=== PATIENT | female | born 1935 | race Caucasian/White ===

== ENCOUNTER → 2018-08-03 | Outpatient (CLI) | payer MEDICARE, OTHER ==
--- NOTE | 2018-08-04 07:21 | ECHOF ---
Referral Reason:I25.10 Atherosclerotic heart disease MEASUREMENTS -------- HEIGHT: 160.0 cm WEIGHT: 54.4 kg BP: 194/84 RVIDd: 2.1 cm (< 3.3) IVSd: 1.5 cm (0.6 - 1.1) LVIDd: 2.9 cm (3.9 - 5.3) LVPWd: 1.5 cm (0.6 - 1.1) IVSs: 2.0 cm LVIDs: 2.4 cm LVPWs: 1.6 cm LA Diam: 3.1 cm (2.7 - 3.8) LAESV Index (A-L): 52.14 ml/m Ao Diam: 3.3 cm (2.0 - 3.7) AV Cusp: 1.2 cm (1.5 - 2.6) MV EXCURSION: 9.870 mm (> 18.000) MV EF SLOPE: 15 mm/s (70 - 150) EPSS: 0.4 cm MV E Lucius: 1.46 m/s MV DecT: 471 ms MV A Lucius: 1.58 m/s MV E/A Ratio: 0.92 AV maxP.00 mmHg AV meanP.43 mmHg RAP: 5.00 mmHg RVSP: 35.84 mmHg FINDINGS -------- Sinus rhythm. This was a technically good study. The left ventricular size is normal. There is moderate concentric left ventricular hypertrophy. O verall left ventricular systolic function is normal with, an EF between 55 - 60 %. The right ventricle is normal in size. LA is severely dilated >40 ml/m2 The right atrium is normal in size. Peak/mean gradient across the Aortic Valve is 16.00mmHg / 8.43mmHg. Normally functioning bioprosthe tic valve. Severe mitral annular calcification present. Moderate mitral regurgitation is present. Mild tricuspid regurgitation present. There is mild pulmonary hypertension. The right ventricular systolic pressure, as measured by Doppler, is 35.84mmHg. Trace/mild (physiologic) pulmonic regurgitation. The aortic root size is normal. Normal inferior vena cava with normal inspiratory collapse consistent with estimated right atrial pre ssure of 5 mmHg. The inferior vena cava is mildly dilated. There is no pericardial effusion. CONCLUSIONS -------- 1. Sinus rhythm. 2. This was a technically good study. 3. The left ventricular size is normal. 4. There is moderate concentric left ventricular hypertrophy. 5. Overall left ventricular systolic function is normal with, an EF between 55 - 60 %. 6. LA is severely dilated >40 ml/m2 7. Peak/mean gradient across the Aortic Valve is 16.00mmHg / 8.43mmHg. 8. Normally functioning bioprosthetic valve. 9. Severe mitral annular calcification present. 10. Moderate mitral regurgitation is present. 11. Mild tricuspid regurgitation present. 12. There is mild pulmonary hypertension. 13. Trace/mild (physiologic) pulmonic regurgitation. 14. The aortic root size is normal. 15. Normal inferior vena cava with normal inspiratory collapse consistent with estimated right atrial pressure of 5 mmHg. 16. The inferior vena cava is mildly dilated. 17. There is no pericardial effusion. PUBLIC HEALTH VETERINARIAN: Amee Rivera RDCS
== END | disposition home or self-care (01) ==
LOC: RADECHMAIN 14:27
PROVIDERS: ATTEND Family Medicine
DX: I08.8 Other rheumatic multiple valve diseases (principal); I27.20 Pulmonary hypertension, unspecified; I25.10 Atherosclerotic heart disease of native coronary artery without angina pectoris
CPT/HCPCS: 93306

== ENCOUNTER 2018-11-11 09:54 | Inpatient (IN) | payer MEDICARE, OTHER ==
[2018-11-11] MEDS ORDERED: PANTOPRAZOLE 40 MG/10 ML VIAL IVP STA (10:01)
[2018-11-11] MEDS ORDERED: SODIUM CHLORIDE 0.9% 1,000 ML IV STA (10:01)
[2018-11-11] MEDS ORDERED: NALOXONE 0.4 MG/ML 1 ML VIAL IV PRN (10:07)
--- NOTE | 2018-11-11 10:13 | ED ---
General Adult HPI - General Chief complaint: GI Bleed Stated complaint: GI BLEED Time Seen by Provider: 11/11/18 09:56 Source: patient, EMS, RN notes reviewed Mode of arrival: EMS Limitations: no limitations - History of Present Illness Initial comments: 83-year-old female presenting from outside hospital as transfer for GI bleed and anemia. Patient noted to have hemoglobin of 6.0 with baseline of 11.5. She does report several episodes of bright red rectal bleeding. Denies chest pain or dyspnea at rest. She does have some mild dyspnea with exertion. Also complains of some generalized weakness. Patient transfused 1 unit of packed red blood cells prior to transfer. EMS reports stable vitals during transport, patient is asymptomatic at the time my evaluation. Denies any episodes of bright red rectal bleeding today. - Related Data Allergies Allergy/AdvReac Type Severity Reaction Status Date / Time No Known Allergies Allergy Verified 11/11/18 10:05 Review of Systems ROS Statement: Those systems with pertinent positive or pertinent negative responses have been documented in the HPI. ROS Other: All systems not noted in ROS Statement are negative. Past Medical History Past Medical History: Coronary Artery Disease (CAD), Thyroid Disorder History of Any Multi-Drug Resistant Organisms: None Reported Past Surgical History: Cardiac Valve Replacement, Coronary Bypass/CABG Past Psychological History: No Psychological Hx Reported Smoking Status: Never smoker Past Alcohol Use History: None Reported Past Drug Use History: None Reported General Exam Limitations: no limitations General appearance: alert, in no apparent distress Head exam: Present: atraumatic, normocephalic Eye exam: Present: normal appearance, PERRL ENT exam: Present: normal exam Neck exam: Present: normal inspection. Absent: tenderness, meningismus Respiratory exam: Present: normal lung sounds bilaterally. Absent: respiratory distress, wheezes Cardiovascular Exam: Present: regular rate, normal rhythm GI/Abdominal exam: Present: soft. Absent: distended, tenderness, guarding Rectal exam: Present: heme (+) stool, black stool Extremities exam: Present: normal inspection, normal capillary refill. Absent: pedal edema Neurological exam: Present: alert, oriented X3 Psychiatric exam: Present: normal affect, normal mood Skin exam: Present: warm, dry, pallor Course Vital Signs 11/11/18 09:58 Temperature 98.4 F Pulse Rate 93 Respiratory 18 Rate Blood Pressure 123/53 O2 Sat by Pulse 100 Oximetry Medical Decision Making - Medical Decision Making 83-year-old female with rectal bleeding and anemia. On exam there is melanotic stool in the rectal vault, no bright red blood, no active hemorrhage. Laboratory studies revealed a hemoglobin 6.0 prior to transfusion. Patient was transfused 1 unit in route. After this transfusion is complete, repeat laboratory studies will be obtained including type and screen. Patient is started on Protonix. She will be admitted with gastroenterology on consult. Case discussed with Dr. Montes, we will admit. Repeat laboratory studies pending Disposition Clinical Impression: Melena, GI bleed Disposition: ADMITTED IP TO THIS [facility] Condition: Stable Is patient prescribed a controlled substance at d/c from ED?: No Referrals: Romeo Montes MD [Primary Care Provider] - 1-2 days Decision to Admit Reason: Admit from EC Decision Date: 11/11/18 Decision Time: 10:13
[2018-11-11 11:57] LABS: Basophils % (A) 0 %; Eosinophils % (A) 0 %; HCT 25.3 % (34.0-46.0); HGB 8.3 gm/dL (11.4-16.0); Lymphocytes # (A) 1.1 k/uL (1.0-4.8); Lymphocytes % (A) 10 %; MCH 29.4 pg (25.0-35.0); MCHC 32.8 g/dL (31.0-37.0); MCV 89.7 fL (80.0-100.0); Mean Platelet Volume 7.4; Monocytes # (A) 0.3 k/uL (0-1.0); Monocytes % (A) 3 %; Neutrophils # (A) 9.6 k/uL (1.3-7.7); Neutrophils % (A) 86 %; Platelet Count 203 k/uL (150-450); RBC 2.82 m/uL (3.80-5.40); RDW 13.7 % (11.5-15.5); WBC 11.1 k/uL (3.8-10.6)
[2018-11-11 12:14] LABS: ALT 33 U/L (9-52); AST 25 U/L (14-36); Albumin 2.8 g/dL (3.5-5.0); Alkaline Phosphatase 77 U/L (38-126); Anion Gap 5 mmol/L; Blood Urea Nitrogen 27 mg/dL (7-17); Calcium 8.7 mg/dL (8.4-10.2); Carbon Dioxide 24 mmol/L (22-30); Chloride 104 mmol/L (98-107); Glucose 109 mg/dL (74-99); Potassium 4.5 mmol/L (3.5-5.1); Sodium 133 mmol/L (137-145); Total Bilirubin 0.6 mg/dL (0.2-1.3); Total Protein 4.8 g/dL (6.3-8.2)
[2018-11-11 12:19] LABS: Prothrombin Time 10.4 sec (9.0-12.0)
[2018-11-11 12:30] LABS: Partial Thromboplastin Time 20.8 sec (22.0-30.0)
[2018-11-11] MEDS: LEVOTHYROXINE 88 MCG TAB PO SCH (15:06)
[2018-11-11 17:54] LABS: Glucose,Whole Blood 188 mg/dL (75-99)
[2018-11-11] MEDS ORDERED: SODIUM CHLORIDE 0.9% 500 ML 500 ML IV ONE (17:58)
[2018-11-11 18:17] LABS: MCH 28.9 pg (25.0-35.0); MCHC 32.3 g/dL (31.0-37.0); MCV 89.6 fL (80.0-100.0); Platelet Count 175 k/uL (150-450); RBC 2.04 m/uL (3.80-5.40); RDW 14.1 % (11.5-15.5); WBC 11.9 k/uL (3.8-10.6)
[2018-11-11 18:29] LABS: HGB 5.9 gm/dL (11.4-16.0)
[2018-11-11 18:30] LABS: HCT 18.3 % (34.0-46.0)
[2018-11-11 19:08] LABS: Glucose,Whole Blood 160 mg/dL (75-99)
[2018-11-11] MEDS ORDERED: METOPROLOL TARTRATE 50 MG TAB PO SCH (21:00)
[2018-11-11] MEDS: METOPROLOL TARTRATE 25 MG TAB PO SCH (21:00)
[2018-11-11 21:02] LABS: Appearance,Urine Clear (Clear); Bilirubin,Urine Negative (Negative); Blood,Urine Negative (Negative); Color,Urine Light Yellow; Glucose,Urine (UA) Negative (Negative); Ketones,Urine 1+ (Negative); Leukocyte Esterase,Urine Negative (Negative); Nitrite,Urine Negative (Negative); PH, Urine 5.5 (5.0-8.0); Protein,Urine Negative (Negative); Specific Gravity,Urine 1.024 (1.001-1.035); Urobilinogen,Urine <2.0 mg/dL (<2.0)
[2018-11-11] MEDS: LATANOPROST 0.005% OPHTH DROPS 2.5 ML BTL BOTH EYES SCH (21:38)
[2018-11-11] MEDS: PANTOPRAZOLE 40 MG/10 ML VIAL IVP SCH (21:38)
[2018-11-12 00:24] LABS: Glucose,Whole Blood 185 mg/dL (75-99)
[2018-11-12 00:52] LABS: HCT 22.6 % (34.0-46.0); HGB 7.3 gm/dL (11.4-16.0); MCH 29.3 pg (25.0-35.0); MCHC 32.1 g/dL (31.0-37.0); MCV 91.1 fL (80.0-100.0); Mean Platelet Volume 8.1; Platelet Count 137 k/uL (150-450); RBC 2.48 m/uL (3.80-5.40); RDW 14.1 % (11.5-15.5); WBC 13.3 k/uL (3.8-10.6)
--- NOTE | 2018-11-12 00:58 | CT ---
EXAM: CT Abdomen and Pelvis Without Intravenous Contrast CLINICAL HISTORY: gi bleed TECHNIQUE: Axial computed tomography images of the abdomen and pelvis without intravenous contrast. CTDI is 5.9 mGy and DLP is 332.8 mGy-cm. This CT exam was performed using one or more of the following dose reduction techniques: automated exposure control, adjustment of the mA and/or kV according to patient size, and/or use of iterative reconstruction technique. COMPARISON: No relevant prior studies available. FINDINGS: Lung bases: Unremarkable. No mass. No consolidation. ABDOMEN: Liver: Unremarkable. Gallbladder and bile ducts: Unremarkable. No calcified stones. No ductal dilation. There is evidence for vicarious excretion of contrast versus layering of small stones in the gallbladder which is noted be anterior to the liver Pancreas: Unremarkable. No ductal dilation. Spleen: Unremarkable. No splenomegaly. Adrenals: Unremarkable. No mass. Kidneys and ureters: Unremarkable. No obstructing stones. No hydronephrosis. Stomach and bowel: Findings suspicious for gastric pull-through. No mucosal thickening no obstruction. PELVIS: Appendix: The appendix is unremarkable Bladder: Unremarkable. No stones. Reproductive: Unremarkable as visualized. ABDOMEN and PELVIS: Intraperitoneal space: Unremarkable. No free air. No significant fluid collection. Bones/joints: No acute fracture. No dislocation. Soft tissues: Unremarkable. Vasculature: Unremarkable. No abdominal aortic aneurysm. Lymph nodes: Unremarkable. No enlarged lymph nodes. IMPRESSION: Unremarkable CT abdomen and pelvis no acute abnormality demonstrated
[2018-11-12 04:04] LABS: Basophils % (A) 0 %; Eosinophils % (A) 0 %; Lymphocytes # (A) 1.3 k/uL (1.0-4.8); Lymphocytes % (A) 9 %; MCH 29.5 pg (25.0-35.0); MCHC 32.4 g/dL (31.0-37.0); MCV 90.9 fL (80.0-100.0); Mean Platelet Volume 8.1; Monocytes # (A) 0.6 k/uL (0-1.0); Monocytes % (A) 4 %; Neutrophils # (A) 13.3 k/uL (1.3-7.7); Neutrophils % (A) 86 %; Platelet Count 129 k/uL (150-450); RBC 2.19 m/uL (3.80-5.40); RDW 14.2 % (11.5-15.5); WBC 15.3 k/uL (3.8-10.6)
[2018-11-12 04:11] LABS: ALT 33 U/L (9-52); AST 20 U/L (14-36); Albumin 1.7 g/dL (3.5-5.0); Alkaline Phosphatase 47 U/L (38-126); Anion Gap 3 mmol/L; Blood Urea Nitrogen 28 mg/dL (7-17); Calcium 7.8 mg/dL (8.4-10.2); Carbon Dioxide 21 mmol/L (22-30); Chloride 110 mmol/L (98-107); Glucose 168 mg/dL (74-99); HCT 19.9 % (34.0-46.0); HGB 6.5 gm/dL (11.4-16.0); Magnesium 1.6 mg/dL (1.6-2.3); Phosphorus 2.7 mg/dL (2.5-4.5); Potassium 4.3 mmol/L (3.5-5.1); Sodium 134 mmol/L (137-145); Total Bilirubin 0.3 mg/dL (0.2-1.3); Total Protein 3.2 g/dL (6.3-8.2)
[2018-11-12] MEDS ORDERED: Magnesium Replacement Protocol 1 EACH MISC MISCELLANE PRN (04:34)
[2018-11-12] MEDS: MAGNESIUM SULFATE-D5W PMX 1 GM in DEXTROSE/WATER 1 100ML.BAG IVPB SCH ×2 (04:48→05:50)
[2018-11-12] MEDS: LEVOTHYROXINE 88 MCG TAB PO SCH (05:39)
[2018-11-12 08:57] LABS: HCT 23.3 % (34.0-46.0); HGB 7.9 gm/dL (11.4-16.0); MCH 30.5 pg (25.0-35.0); MCV 89.8 fL (80.0-100.0); Mean Platelet Volume 7.6; Platelet Count 119 k/uL (150-450); RBC 2.59 m/uL (3.80-5.40); RDW 14.1 % (11.5-15.5); WBC 18.2 k/uL (3.8-10.6)
[2018-11-12] MEDS: PANTOPRAZOLE 40 MG/10 ML VIAL IVP SCH ×2 (09:30→20:12)
[2018-11-12] MEDS: METOPROLOL TARTRATE 25 MG TAB PO SCH ×2 (09:30→20:12)
--- NOTE | 2018-11-12 09:33 | HP ---
HISTORY AND PHYSICAL DATE OF SERVICE: 11/11/2018 CHIEF COMPLAINT: This is an elderly white female, 83 years old, brought to the hospital, transferred from [place] for GI bleeding and anemia. The hemoglobin was 6, given unit of blood. The baseline hemoglobin is 11.5. She had bright red bleeding from the rectum when sitting on the toilet at which time she came to the hospital. She is confused and weak at this time. Stat hemoglobin when I saw her was 5.5, transferred to ICU for stat consult with Surgery and 2 units of blood were ordered at this point. She has no prior history of any bleeding. PAST MEDICAL HISTORY: Hypertension, hypothyroidism, severe scoliosis and chronic back pain. ALLERGIES: Negative. REVIEW OF SYSTEMS: Fourteen-point review of systems otherwise negative. Past medical history also involves a cardiac valve replacement and CABG. PHYSICAL EXAMINATION: A thin, cachectic, white female. MUSCULOSKELETAL: Large scoliosis deviation of her back. LUNGS: Clear. CARDIOVASCULAR: S1, S2. NEUROLOGIC: Alert and oriented x3. Skin is warm and dry, pallor. RECTAL DONE IN THE ER: Positive black stool. EXTREMITIES: No edema. Temp was 98.4 in the ER, pulse 90, respiratory rate 16 to 18, blood pressure is 120s over 50s and O2 of 95% to 100%. ASSESSMENT: Melena, gastrointestinal bleed. Hematemesis here on the floor, transferred to ICU. Two units packed red blood cells for hemoglobin 5.5. ordered stat. Stat consult surgery and GI to be reconsulted. ICU time is 60 minutes. MMODL / IJN: [id number] /
[2018-11-12] MEDS: SODIUM CHLORIDE 0.9% 1,000 ML IV SCH (10:02)
--- NOTE | 2018-11-12 10:27 | P.CRDCN ---
History of Present Illness Consult date: 11/12/18 History of present illness: This is a 83-year-old female with history of coronary artery disease with a previous bypass surgery and hypertensive cardiac vascular disease who was transferred from [facility] with a severe anemia. Patient was given blood transfusion. We're asked to see the patient because of low blood pressures. Since she got her blood transfusion, her blood pressure has been running about 100 to 120 systolic. Patient denies any chest pain. She denies any shortness of breath. She still looks pale. Patient is going to have upper endoscopy today and if necessary colonoscopy tomorrow. Patient has received metoprolol this morning and tolerating well. We'll continue current medical therapy. We'll follow her Review of Systems As per the chart Past Medical History Past Medical History: Coronary Artery Disease (CAD), Eye Disorder, GERD/Reflux, GI Bleed, Hypertension, Thyroid Disorder Additional Past Medical History / Comment(s): Pt recently admitted to [employer] for weakness and hyponatremia. Other Hx: Aortic valve replacement, aortic aneurysm repair, lower GI bleed, diverticular disease, gastritis, doudenitis, multiple erosions/gastric ulcers, chronic thoracic back pain with thoracic compression fracture. History of Any Multi-Drug Resistant Organisms: None Reported Past Surgical History: Cardiac Valve Replacement Additional Past Surgical History / Comment(s): Aortic aneurysm repair, cardiac valve replacement, EGD, colonoscopy. Past Anesthesia/Blood Transfusion Reactions: No Reported Reaction Additional Past Anesthesia/Blood Transfusion Reaction / Comment(s): Pt received blood in 2012 and 11/11/18 without reaction Smoking Status: Never smoker - Past Family History Mother Family Medical History: Neurologic Disorder Additional Family Medical History / Comment(s): Mother had parkinson's disease and a mastectomy that turned out to be noncancerous Father Family Medical History: Cancer Additional Family Medical History / Comment(s): Lung cancer. Medications and Allergies Home Medications Medication Instructions Recorded Confirmed Type Latanoprost Ophth [Xalatan 0.005%] 1 drop BOTH EYES HS 11/11/18 11/11/18 History Levothyroxine Sodium [Synthroid] 88 mcg PO DAILY 11/11/18 11/11/18 History Metoprolol Tartrate [Lopressor] 50 mg PO BID 11/11/18 11/11/18 History Allergies Allergy/AdvReac Type Severity Reaction Status Date / Time No Known Allergies Allergy Verified 11/11/18 10:40 Physical Exam Vitals: Vital Signs Temp Pulse Pulse Resp BP BP Pulse Ox 11/12/18 10:00 101 H 14 104/53 100 11/12/18 09:45 105 H 16 110/81 99 11/12/18 09:30 102 H 22 120/63 100 11/12/18 09:15 112 H 23 103/52 100 11/12/18 09:00 105 H 24 109/57 99 11/12/18 08:45 106 H 21 112/48 100 11/12/18 08:30 104 H 21 102/50 98 11/12/18 08:27 96 11/12/18 08:15 94 19 108/47 100 11/12/18 08:02 70 21 11/12/18 08:00 97.8 F 100 16 89/53 100 11/12/18 07:00 97.6 F 100 15 96/38 100 11/12/18 06:45 95 18 93/45 98 11/12/18 06:30 93 18 98/32 98 11/12/18 06:15 74 16 95/39 98 11/12/18 06:00 86 18 100 11/12/18 05:45 92 22 94/43 100 11/12/18 05:30 89 16 85/46 100 11/12/18 05:00 96 25 H 90/45 98 11/12/18 04:30 101 H 26 H 76/43 99 11/12/18 04:00 97.6 F 101 H 18 97/50 100 11/12/18 03:30 97 19 97/48 100 11/12/18 03:00 95 26 H 91/44 100 11/12/18 02:30 82 18 89/41 99 11/12/18 02:00 82 17 91/52 11/12/18 01:30 72 20 87/48 100 11/12/18 01:15 87 18 99/45 98 11/12/18 01:00 86 17 90/39 99 11/12/18 00:45 75 16 88/50 97 11/12/18 00:30 75 18 88/40 97 11/12/18 00:15 97.6 F 93 17 82/47 96 11/12/18 00:00 21 11/11/18 23:45 102/48 11/11/18 23:30 76 7 L 106/52 100 11/11/18 23:25 77 21 106/52 100 11/11/18 23:15 98 F 80 11 L 105/54 99 11/11/18 23:00 72 22 107/50 100 11/11/18 22:45 80 19 108/47 100 11/11/18 22:30 80 12 94/42 99 11/11/18 22:15 98.1 F 77 17 94/44 99 11/11/18 22:00 98.4 F 79 17 104/47 100 11/11/18 21:45 98.4 F 75 15 109/46 100 11/11/18 21:30 80 20 111/45 100 11/11/18 21:15 80 19 110/48 100 11/11/18 21:00 97.9 F 74 18 105/48 100 11/11/18 20:45 98.3 F 75 19 102/46 100 11/11/18 20:30 98.1 F 79 18 109/43 99 11/11/18 20:25 98 F 70 18 109/43 100 11/11/18 20:00 80 19 106/66 98 11/11/18 18:33 73 20 92/57 100 11/11/18 18:14 71 96/62 99 11/11/18 17:47 80 81/51 11/11/18 17:44 87 93/59 100 11/11/18 15:29 98.7 F 110 H 16 105/53 98 11/11/18 12:00 98.6 F 95 16 123/66 100 11/11/18 10:50 98.4 F 86 18 120/52 100 Intake and Output 11/11/18 11/12/18 11/12/18 22:59 06:59 14:59 Intake Total 1555 1220 460 Output Total 550 248 100 Balance 1005 972 360 Intake: IV 625 600 150 Sodium Chloride 0.9% 1, 625 600 150 000 ml @ 75 mls/hr IV . [id number] STA Rx#:[id number] Blood Product 930 620 310 Rc Irr As1 Unit 0 310 [id number] Rc Pheresis 2 As3 Unit 0 310 [id number] Rc Pheresis 2 As3 Unit 310 [id number] Output: Urine 550 248 100 Other: Voiding Method Indwelling Catheter Indwelling Catheter Indwelling Catheter Weight 57.2 kg GENERAL EXAM: Patient is alert . She appears pale and frail. No acute distress HEENT: Normocephalic. Normal reaction of pupils, equal size, normal range of extraocular motion. No erythema or exudates in the throat. NECK: No masses, no nuchal rigidity. CHEST: No chest wall deformity. LUNGS: Equal air entry with no crackles or wheeze. HEART: S1 and S2 normal with no audible mumurs or gallops. Regular rhythm, femorals equal on both sides.. ABDOMEN: No hepatosplenomegaly, normal bowel sounds, no guarding or rigidity. SKIN: No rashes CENTRAL NERVOUS SYSTEM: No focal deficits. EXTREMITIES: No cyanosis, clubbing or edema. Results 11/12/18 08:31 11/12/18 03:31 Cardiac Enzymes 11/11/18 11/12/18 Range/Units 11:14 03:31 AST 25 20 (14-36) U/L Coagulation 11/11/18 Range/Units 11:14 PT 10.4 (9.0-12.0) sec APTT 20.8 L (22.0-30.0) sec CBC 11/11/18 11/11/18 11/12/18 Range/Units 11:14 18:03 00:20 WBC 11.1 H 11.9 H 13.3 H (3.8-10.6) k/uL RBC 2.82 L 2.04 L 2.48 L (3.80-5.40) m/uL Hgb 8.3 L 5.9 L* D 7.3 L (11.4-16.0) gm/dL Hct 25.3 L 18.3 L* 22.6 L (34.0-46.0) % Plt Count 203 175 137 L (150-450) k/uL 11/12/18 11/12/18 Range/Units 03:31 08:31 WBC 15.3 H 18.2 H (3.8-10.6) k/uL RBC 2.19 L 2.59 L (3.80-5.40) m/uL Hgb 6.5 L* 7.9 L (11.4-16.0) gm/dL Hct 19.9 L* 23.3 L (34.0-46.0) % Plt Count 129 L 119 L (150-450) k/uL Comprehensive Metabolic Panel 11/11/18 11/12/18 Range/Units 11:14 03:31 Sodium 133 L 134 L (137-145) mmol/L Potassium 4.5 4.3 (3.5-5.1) mmol/L Chloride 104 110 H (98-107) mmol/L Carbon Dioxide 24 21 L (22-30) mmol/L BUN 27 H 28 H (7-17) mg/dL Creatinine 0.48 L 0.55 (0.52-1.04) mg/dL Glucose 109 H 168 H (74-99) mg/dL Calcium 8.7 7.8 L (8.4-10.2) mg/dL AST 25 20 (14-36) U/L ALT 33 33 (9-52) U/L Alkaline Phosphatase 77 47 (38-126) U/L Total Protein 4.8 L 3.2 L (6.3-8.2) g/dL Albumin 2.8 L 1.7 L (3.5-5.0) g/dL Current Medications Generic Name Dose Route Start Last Admin Trade Name Freq PRN Reason Stop Dose Admin Sodium Chloride 1,000 mls @ 50 mls/hr 11/12/18 10:00 11/12/18 10:02 Saline 0.9% IV 50 mls/hr .Q20H YEISON Administration Latanoprost 1 drops 11/11/18 21:00 11/11/18 21:38 Xalatan 0.005% BOTH EYES 1 drops HS YEISON Administration Levothyroxine Sodium 88 mcg 11/11/18 14:00 11/12/18 05:39 Synthroid PO Not Given DAILY@0630 YEISON Metoprolol Tartrate 25 mg 11/11/18 21:00 11/12/18 09:30 Lopressor PO 25 mg BID YEISON Administration Miscellaneous Information 1 each 11/12/18 04:34 Magnesium Per Protocol MISCELLANE DAILY PRN Per Protocol Protocol Naloxone HCl 0.2 mg 11/11/18 10:07 Narcan IV Q2M PRN Opioid Reversal Pantoprazole Sodium 40 mg 11/11/18 21:00 11/12/18 09:30 Protonix IVP 40 mg BID YEISON Administration Intake and Output 11/11/18 11/12/18 11/12/18 22:59 06:59 14:59 Intake Total 1555 1220 460 Output Total 550 248 100 Balance 1005 972 360 Intake: IV 625 600 150 Sodium Chloride 0.9% 1, 625 600 150 000 ml @ 75 mls/hr IV . [id number] STA Rx#:[id number] Blood Product 930 620 310 Rc Irr As1 Unit 0 310 [id number] Rc Pheresis 2 As3 Unit 0 310 [id number] Rc Pheresis 2 As3 Unit 310 [id number] Output: Urine 550 248 100 Other: Voiding Method Indwelling Catheter Indwelling Catheter Indwelling Catheter Weight 57.2 kg 11/12/18 08:31 11/12/18 03:31 Assessment and Plan (1) History of coronary artery bypass graft Current Visit: Yes Status: Acute Code(s): Z95.1 - PRESENCE OF AORTOCORONARY BYPASS GRAFT SNOMED Code(s): 079815153 (2) Acute blood loss anemia Current Visit: Yes Status: Acute Code(s): D62 - ACUTE POSTHEMORRHAGIC ANEMIA SNOMED Code(s): 370708650 (3) GI bleed Current Visit: Yes Status: Acute Code(s): K92.2 - GASTROINTESTINAL HEMORRHAGE, UNSPECIFIED SNOMED Code(s): 80934743 (4) History of hypertension Current Visit: Yes Status: Acute Code(s): Z86.79 - PERSONAL HISTORY OF OTHER DISEASES OF THE CIRCULATORY SYSTEM SNOMED Code(s): 463640659 (5) Hypotension Current Visit: Yes Status: Acute Code(s): I95.9 - HYPOTENSION, UNSPECIFIED SNOMED Code(s): 92347640 Plan: Patient's hypotension seemed to be related to anemia and blood loss. Currently her hemodynamics are relatively stable. Patient is mildly tachycardic which could be multifactorial including anemia. I'll continue with current management. Patient is going to have endoscopy studies. Denies any chest pain or shortness of breath. Further recommendations depend upon clinical course
--- NOTE | 2018-11-12 10:51 | P.CONS ---
History of Present Illness - Reason for Consult Consult date: 11/12/18 GI bleed Requesting physician: Romeo Montes - Chief Complaint GI bleed - History of Present Illness 83-year-old female with a past medical history of valvular heart disease/tissue aortic valve replacement, colonic diverticulosis, CABG, hiatal hernia, CAD, GI bleed, hypertension, GERD presents as a transfer from [facility] with reports of rectal bleeding anemia hemoglobin 6 previously 11 range, shortness of breath and lightheadedness. She's received 4 units of blood current hemoglobin is 7.9. Hemodynamically stable. Afebrile. Patient takes one tablet of Aleve on a nightly basis for arthritis and states a few days ago she noticed dark colored burgundy bowel movements relatively painless. Denies hematemesis or melena. She reports a history of GI bleed but cannot quantify how long ago she thinks she had an EGD colonoscopy maybe 3-4 years ago but unsure however when reviewing prior medical records, GI office records and local hospital records endoscopic reports could not be found. She remembers being told she has colonic diverticulosis. CT abdomen and pelvis reported no acute abnormality. Review of Systems Constitutional: Denies fever, chills, sweats, weight gain, or loss. Reports lightheadedness. HEENT: Negative for migraines, blurred vision or loss, earaches, drainage, tinnitus, oral mucosal lesions, dysphagia, or odynophagia. CARDIAC: Negative for chest pain, arrhythmias, or palpitation. RESPIRATORY: Admitted with shortness of breath denies, hemoptysis, cough, or sputum production. GI: See HPI for pertinent findings. : Negative for hematuria, urgency, frequency, polyuria, or dysuria. GYNc: Negative vaginal discharge. MUSCULOSKELETAL: Negative for muscle aches, swelling, arthritis, and arth ralgias. NEUROLOGIC: Negative for stroke or TIA. ENDOCRINE: Negative for thyroid problems. SKIN: Negative for rash or itching. PSYCHIATRIC: Negative history for depression and anxiety Past Medical History Past Medical History: Coronary Artery Disease (CAD), Eye Disorder, GERD/Reflux, GI Bleed, Hypertension, Thyroid Disorder Additional Past Medical History / Comment(s): Pt recently admitted to [facility] for weakness and hyponatremia. Other Hx: Aortic valve replacement, aortic aneurysm repair, lower GI bleed, diverticular disease, gastritis, doudenitis, multiple erosions/gastric ulcers, chronic thoracic back pain with thoracic compression fracture. History of Any Multi-Drug Resistant Organisms: None Reported Past Surgical History: Cardiac Valve Replacement Additional Past Surgical History / Comment(s): Aortic aneurysm repair, cardiac valve replacement, EGD, colonoscopy. Past Anesthesia/Blood Transfusion Reactions: No Reported Reaction Additional Past Anesthesia/Blood Transfusion Reaction / Comm: Pt received blood in 2012 and 11/11/18 without reaction Smoking Status: Never smoker - Past Family History Mother Family Medical History: Neurologic Disorder Additional Family Medical History / Comment(s): Mother had parkinson's disease and a mastectomy that turned out to be noncancerous Father Family Medical History: Cancer Additional Family Medical History / Comment(s): Lung cancer. Medications and Allergies Home Medications Medication Instructions Recorded Confirmed Type Latanoprost Ophth [Xalatan 0.005%] 1 drop BOTH EYES HS 11/11/18 11/11/18 History Levothyroxine Sodium [Synthroid] 88 mcg PO DAILY 11/11/18 11/11/18 History Metoprolol Tartrate [Lopressor] 50 mg PO BID 11/11/18 11/11/18 History Allergies Allergy/AdvReac Type Severity Reaction Status Date / Time No Known Allergies Allergy Verified 11/11/18 10:40 Physical Exam Vitals: Vital Signs Temp Pulse Pulse Resp BP BP Pulse Ox 11/12/18 08:45 106 H 21 112/48 100 11/12/18 08:30 104 H 21 102/50 98 11/12/18 08:27 96 11/12/18 08:15 94 19 108/47 100 11/12/18 08:02 70 21 11/12/18 08:00 97.8 F 100 16 89/53 100 11/12/18 07:00 97.6 F 100 15 96/38 100 11/12/18 06:45 95 18 93/45 98 11/12/18 06:30 93 18 98/32 98 11/12/18 06:15 74 16 95/39 98 11/12/18 06:00 86 18 100 11/12/18 05:45 92 22 94/43 100 11/12/18 05:30 89 16 85/46 100 11/12/18 05:00 96 25 H 90/45 98 11/12/18 04:30 101 H 26 H 76/43 99 11/12/18 04:00 97.6 F 101 H 18 97/50 100 11/12/18 03:30 97 19 97/48 100 11/12/18 03:00 95 26 H 91/44 100 11/12/18 02:30 82 18 89/41 99 11/12/18 02:00 82 17 91/52 11/12/18 01:30 72 20 87/48 100 11/12/18 01:15 87 18 99/45 98 11/12/18 01:00 86 17 90/39 99 11/12/18 00:45 75 16 88/50 97 11/12/18 00:30 75 18 88/40 97 11/12/18 00:15 97.6 F 93 17 82/47 96 11/12/18 00:00 21 11/11/18 23:45 102/48 11/11/18 23:30 76 7 L 106/52 100 11/11/18 23:25 77 21 106/52 100 11/11/18 23:15 98 F 80 11 L 105/54 99 11/11/18 23:00 72 22 107/50 100 11/11/18 22:45 80 19 108/47 100 11/11/18 22:30 80 12 94/42 99 11/11/18 22:15 98.1 F 77 17 94/44 99 11/11/18 22:00 98.4 F 79 17 104/47 100 11/11/18 21:45 98.4 F 75 15 109/46 100 11/11/18 21:30 80 20 111/45 100 11/11/18 21:15 80 19 110/48 100 11/11/18 21:00 97.9 F 74 18 105/48 100 11/11/18 20:45 98.3 F 75 19 102/46 100 11/11/18 20:30 98.1 F 79 18 109/43 99 11/11/18 20:25 98 F 70 18 109/43 100 11/11/18 20:00 80 19 106/66 98 11/11/18 18:33 73 20 92/57 100 11/11/18 18:14 71 96/62 99 11/11/18 17:47 80 81/51 11/11/18 17:44 87 93/59 100 11/11/18 15:29 98.7 F 110 H 16 105/53 98 11/11/18 12:00 98.6 F 95 16 123/66 100 11/11/18 10:50 98.4 F 86 18 120/52 100 11/11/18 10:20 98.4 F 90 18 124/56 100 11/11/18 09:58 98.4 F 93 18 123/53 100 Intake and Output 11/11/18 11/12/18 11/12/18 22:59 06:59 14:59 Intake Total 1555 1220 460 Output Total 550 248 65 Balance 1005 972 395 Intake: IV 625 600 150 Sodium Chloride 0.9% 1, 625 600 150 000 ml @ 75 mls/hr IV . [id number] STA Rx#:[id number] Blood Product 930 620 310 Rc Irr As1 Unit 0 310 [id number] Rc Pheresis 2 As3 Unit 0 310 [id number] Rc Pheresis 2 As3 Unit 310 [id number] Output: Urine 550 248 65 Other: Voiding Method Indwelling Catheter Indwelling Catheter Indwelling Catheter Weight 57.2 kg General appearance: The patient is alert, oriented, in no acute distress. HET: Head is normocephalic and atraumatic. Pupils are equal and reactive. Orop harynx is clear without lesions. Neck: Supple without lymphadenopathy. Trachea midline. Heart: S1 S2. Regular rate and rhythm. Lungs: No crackles or wheezes are heard. Abdomen: Soft, nontender, nondistended with bowel sounds. No peritoneal signs. No palpable organomegaly or masses. Extremities: Normal skin color and turgor. No cyanosis, rash, ulceration, clubbing, or edema. Radial and pedal pulses are 2/4 bilaterally. Neurological: No focal deficits. Strength and sensation are grossly intact. Rectal: No palpable masses dark thin burgundy colored blood on finger. No melena. Results CBC & Chem 7: 11/12/18 08:31 11/12/18 03:31 Labs: Abnormal Lab Results - Last 24 Hours (Table) 11/11/18 11/11/18 11/11/18 Range/Units 11:14 11:14 11:14 WBC 11.1 H (3.8-10.6) k/uL RBC 2.82 L (3.80-5.40) m/uL Hgb 8.3 L (11.4-16.0) gm/dL Hct 25.3 L (34.0-46.0) % Plt Count (150-450) k/uL Neutrophils # 9.6 H (1.3-7.7) k/uL APTT 20.8 L (22.0-30.0) sec Sodium 133 L (137-145) mmol/L Chloride (98-107) mmol/L Carbon Dioxide (22-30) mmol/L BUN 27 H (7-17) mg/dL Creatinine 0.48 L (0.52-1.04) mg/dL Glucose 109 H (74-99) mg/dL POC Glucose (mg/dL) (75-99) mg/dL Calcium (8.4-10.2) mg/dL Total Protein 4.8 L (6.3-8.2) g/dL Albumin 2.8 L (3.5-5.0) g/dL Urine Ketones (Negative) Crossmatch 11/11/18 11/11/18 11/11/18 Range/Units 11:14 17:36 18:03 WBC 11.9 H (3.8-10.6) k/uL RBC 2.04 L (3.80-5.40) m/uL Hgb 5.9 L* D (11.4-16.0) gm/dL Hct 18.3 L* (34.0-46.0) % Plt Count (150-450) k/uL Neutrophils # (1.3-7.7) k/uL APTT (22.0-30.0) sec Sodium (137-145) mmol/L Chloride (98-107) mmol/L Carbon Dioxide (22-30) mmol/L BUN (7-17) mg/dL Creatinine (0.52-1.04) mg/dL Glucose (74-99) mg/dL POC Glucose (mg/dL) 188 H (75-99) mg/dL Calcium (8.4-10.2) mg/dL Total Protein (6.3-8.2) g/dL Albumin (3.5-5.0) g/dL Urine Ketones (Negative) Crossmatch See Detail 11/11/18 11/11/18 11/12/18 Range/Units 19:07 20:35 00:20 WBC 13.3 H (3.8-10.6) k/uL RBC 2.48 L (3.80-5.40) m/uL Hgb 7.3 L (11.4-16.0) gm/dL Hct 22.6 L (34.0-46.0) % Plt Count 137 L (150-450) k/uL Neutrophils # (1.3-7.7) k/uL APTT (22.0-30.0) sec Sodium (137-145) mmol/L Chloride (98-107) mmol/L Carbon Dioxide (22-30) mmol/L BUN (7-17) mg/dL Creatinine (0.52-1.04) mg/dL Glucose (74-99) mg/dL POC Glucose (mg/dL) 160 H (75-99) mg/dL Calcium (8.4-10.2) mg/dL Total Protein (6.3-8.2) g/dL Albumin (3.5-5.0) g/dL Urine Ketones 1+ H (Negative) Crossmatch 11/12/18 11/12/18 11/12/18 Range/Units 00:23 03:31 03:31 WBC 15.3 H (3.8-10.6) k/uL RBC 2.19 L (3.80-5.40) m/uL Hgb 6.5 L* (11.4-16.0) gm/dL Hct 19.9 L* (34.0-46.0) % Plt Count 129 L (150-450) k/uL Neutrophils # 13.3 H (1.3-7.7) k/uL APTT (22.0-30.0) sec Sodium 134 L (137-145) mmol/L Chloride 110 H (98-107) mmol/L Carbon Dioxide 21 L (22-30) mmol/L BUN 28 H (7-17) mg/dL Creatinine (0.52-1.04) mg/dL Glucose 168 H (74-99) mg/dL POC Glucose (mg/dL) 185 H (75-99) mg/dL Calcium 7.8 L (8.4-10.2) mg/dL Total Protein 3.2 L (6.3-8.2) g/dL Albumin 1.7 L (3.5-5.0) g/dL Urine Ketones (Negative) Crossmatch 11/12/18 Range/Units 08:31 WBC 18.2 H (3.8-10.6) k/uL RBC 2.59 L (3.80-5.40) m/uL Hgb 7.9 L (11.4-16.0) gm/dL Hct 23.3 L (34.0-46.0) % Plt Count 119 L (150-450) k/uL Neutrophils # (1.3-7.7) k/uL APTT (22.0-30.0) sec Sodium (137-145) mmol/L Chloride (98-107) mmol/L Carbon Dioxide (22-30) mmol/L BUN (7-17) mg/dL Creatinine (0.52-1.04) mg/dL Glucose (74-99) mg/dL POC Glucose (mg/dL) (75-99) mg/dL Calcium (8.4-10.2) mg/dL Total Protein (6.3-8.2) g/dL Albumin (3.5-5.0) g/dL Urine Ketones (Negative) Crossmatch CT scan - abdomen: report reviewed (Dr. Iniguez) Assessment and Plan (1) GI bleed Narrative/Plan: 83-year-old female with a history of chronic NSAID usage aortic valvular disease CAD hiatal hernia GERD with reported previous history of GI bleed presents with painless burgundy colored rectal bleeding lightheadedness shortness of breath consistent with symptomatic acute blood loss anemia differentials to consider but not excluded colonic diverticular bleeding, AVM, neoplasm, upper GI sources such as peptic ulcer disease bleeding AVM exacerbated by NSAID therapy. Current Visit: Yes Status: Acute Code(s): K92.2 - GASTROINTESTINAL HEMORRHAGE, UNSPECIFIED SNOMED Code(s): 22891650 (2) Acute blood loss anemia Current Visit: Yes Status: Acute Code(s): D62 - ACUTE POSTHEMORRHAGIC ANEMIA SNOMED Code(s): 556329317 Plan: 1. Request to obtain endoscopic records from primary's office place on chart for review. Will proceed with EGD evaluation this afternoon patient is requesting GI service to perform EGD. Patient will like to hold off on colonoscopy unless it's absolutely necessary; which is reasonable if it was performed less than 3 years ago. If EGD is unremarkable will discuss inpatient colonoscopy possible small bowel capsule endoscopy in the next 24-48 hours. CBC at noon. Protonix 40 mg twice daily. Nothing by mouth except medications. Hold NSAIDs. The commercial ocean clammer has discussed the risks, benefits and alternative therapies for the above-mentioned procedure and for both sedation/analgesia as well as necessary blood product administration, if indicated, as they pertain to this patient. The patient has indicated understanding and acceptance of the risks and procedures discussed. Thank you for this kind referral and the opportunity to participate in the care of your patient. This consultation was discussed with Dr. Johnson. The impression and plan of care have been directed as dictated.
[2018-11-12] MEDS ORDERED: SODIUM CHLORIDE 0.9% 500 ML 500 ML IV ONE (12:17)
--- NOTE | 2018-11-12 12:52 | P.PN ---
Subjective Progress Note Date: 11/12/18 CHIEF COMPLAINT: Rectal bleeding HISTORY OF PRESENT ILLNESS: 83-year-old female who was transferred from [facility] secondary to rectal bleeding. General surgery was consulted for further evaluation. Patient's hemoglobin 7.9 currently. She is s /p RBC transfusion. PAST MEDICAL HISTORY: See list. PAST SURGICAL HISTORY: See list. MEDICATIONS: See list. ALLERGIES: See list. SOCIAL HISTORY: No illicit drug use. REVIEW OF SYSTEMS: CONSTITUTIONAL: Denies fever or chills. HEENT: Denies blurred vision, vision changes, or eye pain. Denies hemoptysis ENDOCRINE: Denies heat or cold intolerance. CARDIOVASCULAR: Denies chest pain or pressure. RESPIRATORY: No shortness of breath. GASTROINTESTINAL: Denies abdominal pain. Denies nausea or vomiting. NEURO: Denies history of seizures. PSYCH: No depression or suicidal ideation HEMATOLOGIC: Denies bleeding disorders. LYMPHATIC: The patient denies any lumps and bumps around the neck. GENITOURINARY: Denies any blood in urine or increased urinary frequency. MUSCULOSKELETAL: Denies myalgias. Denies joint swelling. Denies decreased range of motion beyond patients baseline. SKIN: Denies pruitis. Denies rash. PHYSICAL EXAM: VITAL SIGNS: Currently stable. GENERAL: Well-developed in no acute distress. HEENT: No sclera icterus. Extraocular movements grossly intact. Moist buccal mucosa. Head is atraumatic, normocephalic. Hears conversational speech. No nasal drainage. NECK: Supple without lymphadenopathy. CHEST: Non-labored respirations and equal bilateral excursions. CARDIOVASCULAR: Regular rate with regular rhythm. Palpable 2+ radial pulses. ABDOMEN: Soft. Nondistended. Tenderness upon palpation of all 4 quadrant, most severe in right lower quadrant MUSCULOSKELETAL: No clubbing, cyanosis or edema. NEUROLOGIC: No focal or lateralizing signs. Cranial nerves II through XII grossly intact. PSYCH: Appropriate affect. Alert and oriented to person, place and time. SKIN: Well perfused. Good skin turgor. ASSESSMENT: 1. GI bleed 2. Acute blood loss anemia PLAN: NPO. Recommend EGD. GI is also on consult and patient requesting GI to perform EGD. We will remain on standby if the patient requires any surgical intervention. Nurse practitioner note has been reviewed by physician. Signing provider agrees with the documented findings, assessment, and plan of care. Objective - Vital Signs Vital signs: Vital Signs Temp 97.5 F L 11/12/18 12:00 Pulse 78 11/12/18 12:00 Resp 18 11/12/18 12:00 BP 103/41 11/12/18 12:00 Pulse Ox 100 11/12/18 12:00 Intake & Output 11/11/18 11/12/18 11/12/18 18:59 06:59 18:59 Intake Total 400 2375 560 Output Total 300 498 130 Balance 100 1877 430 Weight 54.431 kg 57.2 kg Intake: IV 400 825 250 Sodium Chloride 0.9% 1, 100 000 ml @ 50 mls/hr IV . Q20H YEISON Rx#:[id number] Sodium Chloride 0.9% 1, 400 825 150 000 ml @ 75 mls/hr IV . [id number] STA Rx#:[id number] Blood Product 1550 310 Rc Irr As1 Unit 0 310 [id number] Rc Pheresis 2 As3 Unit 310 [id number] Rc Pheresis 2 As3 Unit 310 [id number] Output: Urine 300 498 130 Other: Voiding Method Toilet Indwelling Catheter Indwelling Catheter - Labs CBC & Chem 7: 11/12/18 08:31 11/12/18 03:31 Labs: Abnormal Lab Results - Last 24 Hours (Table) 11/11/18 11/11/18 11/11/18 Range/Units 11:14 17:36 18:03 WBC 11.9 H (3.8-10.6) k/uL RBC 2.04 L (3.80-5.40) m/uL Hgb 5.9 L* D (11.4-16.0) gm/dL Hct 18.3 L* (34.0-46.0) % Plt Count (150-450) k/uL Neutrophils # (1.3-7.7) k/uL Sodium (137-145) mmol/L Chloride (98-107) mmol/L Carbon Dioxide (22-30) mmol/L BUN (7-17) mg/dL Glucose (74-99) mg/dL POC Glucose (mg/dL) 188 H (75-99) mg/dL Calcium (8.4-10.2) mg/dL Total Protein (6.3-8.2) g/dL Albumin (3.5-5.0) g/dL Urine Ketones (Negative) Crossmatch See Detail 11/11/18 11/11/18 11/12/18 Range/Units 19:07 20:35 00:20 WBC 13.3 H (3.8-10.6) k/uL RBC 2.48 L (3.80-5.40) m/uL Hgb 7.3 L (11.4-16.0) gm/dL Hct 22.6 L (34.0-46.0) % Plt Count 137 L (150-450) k/uL Neutrophils # (1.3-7.7) k/uL Sodium (137-145) mmol/L Chloride (98-107) mmol/L Carbon Dioxide (22-30) mmol/L BUN (7-17) mg/dL Glucose (74-99) mg/dL POC Glucose (mg/dL) 160 H (75-99) mg/dL Calcium (8.4-10.2) mg/dL Total Protein (6.3-8.2) g/dL Albumin (3.5-5.0) g/dL Urine Ketones 1+ H (Negative) Crossmatch 11/12/18 11/12/18 11/12/18 Range/Units 00:23 03:31 03:31 WBC 15.3 H (3.8-10.6) k/uL RBC 2.19 L (3.80-5.40) m/uL Hgb 6.5 L* (11.4-16.0) gm/dL Hct 19.9 L* (34.0-46.0) % Plt Count 129 L (150-450) k/uL Neutrophils # 13.3 H (1.3-7.7) k/uL Sodium 134 L (137-145) mmol/L Chloride 110 H (98-107) mmol/L Carbon Dioxide 21 L (22-30) mmol/L BUN 28 H (7-17) mg/dL Glucose 168 H (74-99) mg/dL POC Glucose (mg/dL) 185 H (75-99) mg/dL Calcium 7.8 L (8.4-10.2) mg/dL Total Protein 3.2 L (6.3-8.2) g/dL Albumin 1.7 L (3.5-5.0) g/dL Urine Ketones (Negative) Crossmatch 11/12/18 Range/Units 08:31 WBC 18.2 H (3.8-10.6) k/uL RBC 2.59 L (3.80-5.40) m/uL Hgb 7.9 L (11.4-16.0) gm/dL Hct 23.3 L (34.0-46.0) % Plt Count 119 L (150-450) k/uL Neutrophils # (1.3-7.7) k/uL Sodium (137-145) mmol/L Chloride (98-107) mmol/L Carbon Dioxide (22-30) mmol/L BUN (7-17) mg/dL Glucose (74-99) mg/dL POC Glucose (mg/dL) (75-99) mg/dL Calcium (8.4-10.2) mg/dL Total Protein (6.3-8.2) g/dL Albumin (3.5-5.0) g/dL Urine Ketones (Negative) Crossmatch
--- NOTE | 2018-11-12 13:06 | P.CNPUL ---
History of Present Illness Consult date: 11/12/18 Reason for consult: other (GI Bleed, ICU management) Chief complaint: Dark blood per rectum History of present illness: 83-year-old female presented to the emergency department from outside facility with dark red blood per rectum. The patient states that she has a history of a GI bleed in the past. She believes she had a colonoscopy 3 years ago. She was told she has diverticulosis. The patient does have a history of aortic valve replacement, porcine. She is not on anticoagulation. The patient was found to have a hemoglobin of 6. She does have sinus tachycardia. She takes metoprolol at home which will be given now. Patient has been evaluated by GI and the plan is for EGD today with possible c-scope if necessary in the next 24-48 hours. Patient has received 4 units of PRBC thus far. She has had a decrease in urine output to around 15 cc/hr. She will be given IVF bolus and maintained fluids will be at 75 cc/hr. Review of Systems All systems: negative Past Medical History Past Medical History: Coronary Artery Disease (CAD), Eye Disorder, GERD/Reflux, GI Bleed, Hypertension, Thyroid Disorder Additional Past Medical History / Comment(s): Pt recently admitted to [facility] for weakness and hyponatremia. Other Hx: Aortic valve replacement, aortic aneurysm repair, lower GI bleed, diverticular disease, gastritis, doudenitis, multiple erosions/gastric ulcers, chronic thoracic back pain with thoracic compression fracture. History of Any Multi-Drug Resistant Organisms: None Reported Past Surgical History: Cardiac Valve Replacement Additional Past Surgical History / Comment(s): Aortic aneurysm repair, cardiac valve replacement, EGD, colonoscopy. Past Anesthesia/Blood Transfusion Reactions: No Reported Reaction Additional Past Anesthesia/Blood Transfusion Reaction / Comment(s): Pt received blood in 2012 and 11/11/18 without reaction Smoking Status: Never smoker - Past Family History Mother Family Medical History: Neurologic Disorder Additional Family Medical History / Comment(s): Mother had parkinson's disease and a mastectomy that turned out to be noncancerous Father Family Medical History: Cancer Additional Family Medical History / Comment(s): Lung cancer. Medications and Allergies Home Medications Medication Instructions Recorded Confirmed Type Latanoprost Ophth [Xalatan 0.005%] 1 drop BOTH EYES HS 11/11/18 11/11/18 History Levothyroxine Sodium [Synthroid] 88 mcg PO DAILY 11/11/18 11/11/18 History Metoprolol Tartrate [Lopressor] 50 mg PO BID 11/11/18 11/11/18 History Allergies Allergy/AdvReac Type Severity Reaction Status Date / Time No Known Allergies Allergy Verified 11/11/18 10:40 Physical Exam Osteopathic Statement: *. No significant issues noted on an osteopathic structural exam other than those noted in the History and Physical/Consult. Vitals: Vital Signs Temp Pulse Pulse Resp BP BP Pulse Ox 11/12/18 12:00 97.5 F L 78 18 103/41 100 11/12/18 11:38 70 21 11/12/18 11:30 84 20 101/57 100 11/12/18 11:00 87 24 101/52 100 11/12/18 10:30 87 15 98/55 100 11/12/18 10:00 101 H 14 104/53 100 11/12/18 09:45 105 H 16 110/81 99 11/12/18 09:30 102 H 22 120/63 100 11/12/18 09:15 112 H 23 103/52 100 11/12/18 09:00 105 H 24 109/57 99 11/12/18 08:45 106 H 21 112/48 100 11/12/18 08:30 104 H 21 102/50 98 11/12/18 08:27 96 11/12/18 08:15 94 19 108/47 100 11/12/18 08:02 70 21 11/12/18 08:00 97.8 F 100 16 89/53 100 11/12/18 07:00 97.6 F 100 15 96/38 100 11/12/18 06:45 95 18 93/45 98 11/12/18 06:30 93 18 98/32 98 11/12/18 06:15 74 16 95/39 98 11/12/18 06:00 86 18 100 11/12/18 05:45 92 22 94/43 100 11/12/18 05:30 89 16 85/46 100 11/12/18 05:00 96 25 H 90/45 98 11/12/18 04:30 101 H 26 H 76/43 99 11/12/18 04:00 97.6 F 101 H 18 97/50 100 11/12/18 03:30 97 19 97/48 100 11/12/18 03:00 95 26 H 91/44 100 11/12/18 02:30 82 18 89/41 99 11/12/18 02:00 82 17 91/52 11/12/18 01:30 72 20 87/48 100 11/12/18 01:15 87 18 99/45 98 11/12/18 01:00 86 17 90/39 99 11/12/18 00:45 75 16 88/50 97 11/12/18 00:30 75 18 88/40 97 11/12/18 00:15 97.6 F 93 17 82/47 96 11/12/18 00:00 21 11/11/18 23:45 102/48 11/11/18 23:30 76 7 L 106/52 100 11/11/18 23:25 77 21 106/52 100 11/11/18 23:15 98 F 80 11 L 105/54 99 11/11/18 23:00 72 22 107/50 100 11/11/18 22:45 80 19 108/47 100 11/11/18 22:30 80 12 94/42 99 11/11/18 22:15 98.1 F 77 17 94/44 99 11/11/18 22:00 98.4 F 79 17 104/47 100 11/11/18 21:45 98.4 F 75 15 109/46 100 11/11/18 21:30 80 20 111/45 100 11/11/18 21:15 80 19 110/48 100 11/11/18 21:00 97.9 F 74 18 105/48 100 11/11/18 20:45 98.3 F 75 19 102/46 100 11/11/18 20:30 98.1 F 79 18 109/43 99 11/11/18 20:25 98 F 70 18 109/43 100 11/11/18 20:00 80 19 106/66 98 11/11/18 18:33 73 20 92/57 100 11/11/18 18:14 71 96/62 99 11/11/18 17:47 80 81/51 11/11/18 17:44 87 93/59 100 11/11/18 15:29 98.7 F 110 H 16 105/53 98 Intake and Output 11/11/18 11/12/18 11/12/18 22:59 06:59 14:59 Intake Total 1555 1220 560 Output Total 550 248 130 Balance 1005 972 430 Intake: IV 625 600 250 Sodium Chloride 0.9% 1, 100 000 ml @ 50 mls/hr IV . Q20H [facility] Rx#:[id number] Sodium Chloride 0.9% 1, 625 600 150 000 ml @ 75 mls/hr IV . [id number] [facility] Rx#:[id number] Blood Product 930 620 310 Rc Irr As1 Unit 0 310 [id number] Rc Pheresis 2 As3 Unit 0 310 [id number] Rc Pheresis 2 As3 Unit 310 [id number] Output: Urine 550 248 130 Other: Voiding Method Indwelling Catheter Indwelling Catheter Indwelling Catheter Weight 57.2 kg General: Patient is alert and oriented 3, no acute distress, pale Cardiovascular: Regular rate and rhythm, S1/S2, tachycardia Lungs: Clear to auscultation bilaterally no wheezes rales or rhonchi Abdomen: Soft nontender nondistended positive bowel sounds Extremities: No edema Results - Laboratory Findings CBC and BMP: 11/12/18 08:31 11/12/18 03:31 PT/INR, D-dimer PT 10.4 sec (9.0-12.0) 11/11/18 11:14 INR 1.0 (<1.2) 11/11/18 11:14 Abnormal lab findings: Abnormal Labs 11/11/18 11/11/18 11/11/18 11:14 11:14 11:14 WBC 11.1 H RBC 2.82 L Hgb 8.3 L Hct 25.3 L Plt Count Neutrophils # 9.6 H APTT 20.8 L Sodium 133 L Chloride Carbon Dioxide BUN 27 H Creatinine 0.48 L Glucose 109 H POC Glucose (mg/dL) Calcium Total Protein 4.8 L Albumin 2.8 L Urine Ketones Crossmatch 11/11/18 11/11/18 11/11/18 11:14 17:36 18:03 WBC 11.9 H RBC 2.04 L Hgb 5.9 L* D Hct 18.3 L* Plt Count Neutrophils # APTT Sodium Chloride Carbon Dioxide BUN Creatinine Glucose POC Glucose (mg/dL) 188 H Calcium Total Protein Albumin Urine Ketones Crossmatch See Detail 11/11/18 11/11/18 11/12/18 19:07 20:35 00:20 WBC 13.3 H RBC 2.48 L Hgb 7.3 L Hct 22.6 L Plt Count 137 L Neutrophils # APTT Sodium Chloride Carbon Dioxide BUN Creatinine Glucose POC Glucose (mg/dL) 160 H Calcium Total Protein Albumin Urine Ketones 1+ H Crossmatch 11/12/18 11/12/18 11/12/18 00:23 03:31 03:31 WBC 15.3 H RBC 2.19 L Hgb 6.5 L* Hct 19.9 L* Plt Count 129 L Neutrophils # 13.3 H APTT Sodium 134 L Chloride 110 H Carbon Dioxide 21 L BUN 28 H Creatinine Glucose 168 H POC Glucose (mg/dL) 185 H Calcium 7.8 L Total Protein 3.2 L Albumin 1.7 L Urine Ketones Crossmatch 11/12/18 08:31 WBC 18.2 H RBC 2.59 L Hgb 7.9 L Hct 23.3 L Plt Count 119 L Neutrophils # APTT Sodium Chloride Carbon Dioxide BUN Creatinine Glucose POC Glucose (mg/dL) Calcium Total Protein Albumin Urine Ketones Crossmatch Assessment and Plan Assessment: Symptomatic anemia, blood loss Acute GIB History of ASCAD and AVR History of GIB and diverticulosis GERD Dehydration Severe PCM Transfuse PRBC for hemoglobin <7 H/H Q6 hours 500 cc IVF bolus x 1 now, then maintain at 75 cc/hr Monitor for s/sx of continued bleeding Metoprolol now Appreciate cardiology and GI recommendations Plan for EGD today Continue patient's home medications, hold NSAIDs Montior urine output and renal function Consult dietitian IS and pulmonary hygiene SCDs for DVT prophylaxis, Protonix for GI Continue to monitor in the ICU Thank you for this consultation. We will continue to follow along.
[2018-11-12] MEDS ORDERED: IV FLUID CONTINUATION 1,000 ML IV ONE (13:23)
[2018-11-12] MEDS ORDERED: LIDOCAINE 1% INJ 10MG/ML (20 ML MDV) ONE (13:23)
[2018-11-12] MEDS ORDERED: PROPOFOL 10 MG/ML 20 ML VIAL IV ONE (13:23)
[2018-11-12] MEDS ORDERED: EPINEPHrine 10 ML SYRINGE (0.1 MG/ML) MISCELLANE ONE (13:50)
[2018-11-12 13:52] VITALS: BMI 22.3
[2018-11-12] MEDS ORDERED: SODIUM CHLORIDE 0.9% 100 ML IV ONE (14:05)
--- NOTE | 2018-11-12 14:16 | P.PCN ---
Date of Procedure: 11/12/18 Description of Procedure: BRIEF HISTORY: 83-year-old female with a past medical history of valvular heart disease/tissue aortic valve replacement, colonic diverticulosis, CABG, hiatal hernia, CAD, GI bleed, hypertension, GERD presents as a transfer from [facility] with reports of rectal bleeding anemia hemoglobin 6 previously 11 range, shortness of breath and lightheadedness. She's received 4 units of blood current hemoglobin is 7.9. Hemodynamically stable. Afebrile. Patient takes one tablet of Aleve on a nightly basis for arthritis and states a few days ago she noticed dark colored burgundy bowel movements relatively painless. Denies hematemesis or melena. She reports a history of GI bleed but cannot quantify how long ago she thinks she had an EGD and colonoscopy maybe 3-4 years ago but unsure however when reviewing prior medical records, GI office records and local hospital records endoscopic reports could not be found. She remembers being told she has colonic diverticulosis. CT abdomen and pelvis reported no acute abnormality.. PROCEDURE PERFORMED: Esophagogastroduodenoscopy with epinephrine injection and clip placement. PREOPERATIVE DIAGNOSIS: Anemia of acute blood loss, upper GI bleed. ESTIMATED BLOOD LOSS: Minimal. IV sedation per anesthesia. PROCEDURE: After informed consent was obtained, the patient was brought into the endoscopy unit. IV sedation was administered by Anesthesia under continuous monitoring. Initially the Olympus GIF-190 video endoscope was inserted into the mouth. Esophagus intubated without any difficulty. It was gradually advanced into the stomach and duodenum and carefully examined. The bulb and the second part of the duodenum appeared normal, except for old hemolyzed blood which was noted. The scope at this time was withdrawn to the stomach, adequately insufflated with air, and upon careful examination, no blood was noted throughout the entire examined stomach and a 1 cm ulcer in the cardia of the stomach with a clot was noted. Copious lavage was performed in the clot removed. Slight oozing of bl ood from the ulcer was seen and 5 mL of epinephrine were injected around the ulcer with hemostasis achieved. A clip was then placed on the ulcer. Attempts at placing 2 more clips were unsuccessful. Suctioning of the lavage blood was performed. A large hiatal hernia was noted. The scope was then withdrawn into the esophagus. The GE junction appeared normal. The esophagus appeared normal. There were no erosions or ulcerations seen and the patient tolerated the procedure well. IMPRESSION: 1. Actively bleeding gastric ulcer of the cardia treated with clip placement and epinephrine injection, with hemostasis achieved. 2. Old blood noted throughout the entire examined stomach and small bowel with lavage. RECOMMENDATIONS: The findings of this examination were discussed with the patient and her family. Would keep the patient nothing by mouth with ice chips for now. Continue IV Protonix. If hemoglobin stable and patient is asymptomatic can start liquids tomorrow. Avoid NSAIDs. If further bleeding consideration is for second look endoscopy. Surgical service and primary team has been informed of the results of the exam.
--- NOTE | 2018-11-12 14:36 | P.PN ---
Progress Note - Text Progress Note Date: 11/12/18 This is a 83-year-old female with history of aortic valve replacement with porcine valve was recently admitted to the hospital with a GI bleeding and anemia. Patient was hypotensive but responded well after replacement of the volume with blood and fluids. Patient had upper endoscopy yesterday and was found a bleeding ulcer. Patient had epinephrine injection and other measures to control the bleeding. Her hemoglobin seems stable. Maintaining hemoglobin of 7.9. Blood pressure is stable. Otherwise patient seemed to cardiac-kohler had no symptoms at this time. GENERAL EXAM: Patient is alert and oriented and doesn't appear to be in any acute distress, appears slightly pale HEENT: Normocephalic. Normal reaction of pupils, equal size, normal range of extraocular motion. No erythema or exudates in the throat. NECK: No masses, no nuchal rigidity. CHEST: No chest wall deformity. LUNGS: Equal air entry with no crackles or wheeze. HEART: S1 and S2 normal with no audible mumurs or gallops. Regular rhythm, femorals equal on both sides.. ABDOMEN: No hepatosplenomegaly, normal bowel sounds, no guarding or rigidity. SKIN: No rashes CENTRAL NERVOUS SYSTEM: No focal deficits. EXTREMITIES: No cyanosis, clubbing or edema. Plan: Continue current management. We'll resume her beta kenneth and increase the dose as tolerated. No further cardiac workup at this time
[2018-11-12] MEDS ORDERED: ONDANSETRON 4 MG/2 ML VIAL IVP PRN (14:37)
[2018-11-12 15:17] LABS: Basophils % (A) 0 %; Eosinophils % (A) 0 %; HCT 20.9 % (34.0-46.0); HGB 7.3 gm/dL (11.4-16.0); Lymphocytes # (A) 2.3 k/uL (1.0-4.8); Lymphocytes % (A) 13 %; MCH 31.2 pg (25.0-35.0); MCHC 34.7 g/dL (31.0-37.0); MCV 90.1 fL (80.0-100.0); Mean Platelet Volume 7.6; Monocytes # (A) 0.9 k/uL (0-1.0); Monocytes % (A) 6 %; Neutrophils # (A) 13.6 k/uL (1.3-7.7); Neutrophils % (A) 80 %; Platelet Count 139 k/uL (150-450); RBC 2.33 m/uL (3.80-5.40); RDW 14.9 % (11.5-15.5); WBC 17.1 k/uL (3.8-10.6)
[2018-11-12 19:07] LABS: Basophils % (A) 0 %; Eosinophils % (A) 0 %; HCT 21.3 % (34.0-46.0); HGB 7.1 gm/dL (11.4-16.0); Lymphocytes % (A) 11 %; MCHC 33.4 g/dL (31.0-37.0); Mean Platelet Volume 8.1; Monocytes % (A) 5 %; Neutrophils # (A) 15.4 k/uL (1.3-7.7); Neutrophils % (A) 83 %; Platelet Count 144 k/uL (150-450); RBC 2.37 m/uL (3.80-5.40); RDW 15.1 % (11.5-15.5); WBC 18.6 k/uL (3.8-10.6)
[2018-11-12] MEDS: LATANOPROST 0.005% OPHTH DROPS 2.5 ML BTL BOTH EYES SCH (20:12)
--- NOTE | 2018-11-12 22:52 | PN ---
PROGRESS NOTE SUBJECTIVE: 83-year-old white female 4 units of blood for severe anemia. The patient was given cauterized lesion of huge antral ulcer in her stomach and will be adjusting her potassium. Her hemoglobin in the morning and if stable, she will be able to be discharged in the next 24-48 hours if no further bleeding occurs. Discussed case with Dr. Iniguez, GI doctor in the GI lab as well as with the patient. ICU time 30 minutes. MMODL / KARIN: [id number] /
[2018-11-13 00:40] LABS: Basophils % (A) 0 %; Eosinophils % (A) 0 %; HCT 20.3 % (34.0-46.0); Lymphocytes # (A) 2.3 k/uL (1.0-4.8); Lymphocytes % (A) 13 %; MCH 29.3 pg (25.0-35.0); MCHC 32.4 g/dL (31.0-37.0); MCV 90.6 fL (80.0-100.0); Monocytes # (A) 1.2 k/uL (0-1.0); Monocytes % (A) 7 %; Neutrophils # (A) 13.4 k/uL (1.3-7.7); Neutrophils % (A) 78 %; Platelet Count 149 k/uL (150-450); RBC 2.23 m/uL (3.80-5.40); RDW 15.5 % (11.5-15.5); WBC 17.2 k/uL (3.8-10.6)
[2018-11-13 01:01] LABS: HGB 6.6 gm/dL (11.4-16.0)
[2018-11-13 05:46] LABS: Basophils % (A) 0 %; Eosinophils # (A) 0.1 k/uL (0-0.7); Eosinophils % (A) 0 %; HCT 27.5 % (34.0-46.0); Lymphocytes # (A) 2.1 k/uL (1.0-4.8); Lymphocytes % (A) 14 %; MCH 28.8 pg (25.0-35.0); MCHC 32.8 g/dL (31.0-37.0); MCV 87.8 fL (80.0-100.0); Mean Platelet Volume 7.6; Monocytes % (A) 7 %; Neutrophils # (A) 11.3 k/uL (1.3-7.7); Neutrophils % (A) 76 %; Platelet Count 127 k/uL (150-450); RBC 3.13 m/uL (3.80-5.40); RDW 14.9 % (11.5-15.5); WBC 14.8 k/uL (3.8-10.6)
[2018-11-13 06:19] LABS: Anion Gap 1 mmol/L; Blood Urea Nitrogen 28 mg/dL (7-17); Calcium 8.1 mg/dL (8.4-10.2); Carbon Dioxide 23 mmol/L (22-30); Chloride 112 mmol/L (98-107); Glucose 111 mg/dL (74-99); Potassium 4.4 mmol/L (3.5-5.1); Sodium 136 mmol/L (137-145)
[2018-11-13] MEDS: SODIUM CHLORIDE 0.9% 1,000 ML IV SCH (06:46)
[2018-11-13] MEDS: LEVOTHYROXINE 88 MCG TAB PO SCH (06:46)
--- NOTE | 2018-11-13 08:47 | P.PN ---
Progress Note - Text Progress Note Date: 11/13/18 The patient is resting comfortably in her bed. She's had no further evidence of GI bleed. She underwent EGD with clip placement on a gastric ulcer. Her hemoglobin is 9. On exam her vital signs are stable. Her abdomen soft. History of upper GI bleed related to gastric ulcer. Patient shows no evidence of recurrent GI bleed. We will start her on full liquid diet.
[2018-11-13] MEDS: PANTOPRAZOLE 40 MG/10 ML VIAL IVP SCH ×2 (09:11→20:09)
[2018-11-13] MEDS: METOPROLOL TARTRATE 25 MG TAB PO SCH ×2 (09:18→20:08)
[2018-11-13 12:08] LABS: HCT 25.6 % (34.0-46.0); HGB 8.6 gm/dL (11.4-16.0); MCH 29.4 pg (25.0-35.0); MCHC 33.6 g/dL (31.0-37.0); MCV 87.5 fL (80.0-100.0); Mean Platelet Volume 7.6; Platelet Count 124 k/uL (150-450); RBC 2.92 m/uL (3.80-5.40); RDW 15.3 % (11.5-15.5); WBC 14.8 k/uL (3.8-10.6)
--- NOTE | 2018-11-13 13:20 | PN ---
PROGRESS NOTE She was seen on 11/13/2018. She has been hemodynamically stable. She has no further obvious bleed. Her hemoglobin is 9, white count of 14.8. Sodium 136, potassium 4.4, chloride 112, bicarb 23. PHYSICAL EXAMINATION: On physical examination, she has some pallor. Blood pressure is 108/48, respiratory rate of 16, pulse rate of 57, O2 saturation on room air is 95%. HEENT reveals pallor. Chest reveals decreased breath sounds. Cardiovascular system reveals an S1, S2. Abdomen is soft. There is trace edema. IMPRESSION AT THIS TIME: 1. Acute gastrointestinal bleed. 2. Gastric ulcer, status post stapling of the bleeder. 3. Protein calorie malnutrition. Continue Protonix, SCDs. May transfer out of the ICU. I would like to thank you for allowing us to participate in her care. EMILIOL / KARIN: [id number] /
--- NOTE | 2018-11-13 14:26 | PN ---
PROGRESS NOTE She is hemodynamically stable. There is no obvious bleeding. Her hemoglobin is 9, white count 14.8, sodium 136, potassium 4.4. She is more alert, doing appropriate answer. Blood pressure 108/48, heart rate 14 to 16. Lungs are clear. CARDIOVASCULAR: S1, S2. ABDOMEN: Soft. No edema. ASSESSMENT: 1. Status post antral gastric ulcer. 2. Status post stapling of the bleed. 3. Status post acute gastrointestinal bleed and severe anemia. 4. Protein calorie malnutrition. Will possibly discharge her home in the morning if her hemoglobin stabilizes and advance her diet. Possibly discharge home tomorrow. MMODL / IJN: [id number] /
--- NOTE | 2018-11-13 17:21 | P.PN ---
Subjective Progress Note Date: 11/13/18 This is a 83-year-old female with history of aortic valve replacement who was admitted to the hospital with evidence of GI bleeding. She was found to have gastric ulcer and had stapling and also epinephrine injection. Patient's bleeding has stopped. Her hemoglobin is stable. Patient is still weak and frail. She denies any chest pain or shortness of breath. We'll continue current medical therapy and increase activity Objective - Vital Signs Vital signs: Vital Signs Temp 98.9 F 11/13/18 16:00 Pulse 77 11/13/18 17:00 Resp 11 L 11/13/18 17:00 BP 103/62 11/13/18 17:00 Pulse Ox 95 11/13/18 17:00 Intake & Output 11/12/18 11/13/18 11/13/18 18:59 06:59 18:59 Intake Total 1635 2140 760 Output Total 315 358 315 Balance 1320 1782 445 Weight 57.2 kg 58.8 kg Intake: IV 1325 900 600 Sodium Chloride 0.9% 1, 475 900 600 000 ml @ 75 mls/hr IV . [id number] [facility] Rx#:[id number] Sodium Chloride 0.9% 1, 150 000 ml @ 75 mls/hr IV . [id number] [facility] Rx#:[id number] Oral 160 Blood Product 310 1240 Rc Irr As1 Unit 310 [id number] Rc Pheresis 2 As3 Unit 310 [id number] Rc Pheresis 2 As3 Unit 310 [id number] Output: Urine 315 358 315 Other: Voiding Method Indwelling Catheter Indwelling Catheter Indwelling Catheter - Exam GENERAL EXAM: Patient is alert and oriented and doesn't appear to be in any acute distress. Appears pale and weak HEENT: Normocephalic. Normal reaction of pupils, equal size, normal range of extraocular motion. No erythema or exudates in the throat. NECK: No masses, no nuchal rigidity. CHEST: No chest wall deformity. LUNGS: Equal air entry with no crackles or wheeze. HEART: S1 and S2 normal with no audible mumurs or gallops. Regular rhythm, femorals equal on both sides.. ABDOMEN: No hepatosplenomegaly, normal bowel sounds, no guarding or rigidity. SKIN: No rashes CENTRAL NERVOUS SYSTEM: No focal deficits. EXTREMITIES: No cyanosis, clubbing or edema. - Labs CBC & Chem 7: 11/13/18 11:53 11/13/18 05:23 Labs: Abnormal Lab Results - Last 24 Hours (Table) 11/11/18 11/12/18 11/13/18 Range/Units 11:14 18:58 00:13 WBC 18.6 H 17.2 H (3.8-10.6) k/uL RBC 2.37 L 2.23 L (3.80-5.40) m/uL Hgb 7.1 L 6.6 L* (11.4-16.0) gm/dL Hct 21.3 L 20.3 L (34.0-46.0) % Plt Count 144 L 149 L (150-450) k/uL Neutrophils # 15.4 H 13.4 H (1.3-7.7) k/uL Monocytes # 1.2 H (0-1.0) k/uL Sodium (137-145) mmol/L Chloride (98-107) mmol/L BUN (7-17) mg/dL Glucose (74-99) mg/dL Calcium (8.4-10.2) mg/dL Crossmatch See Detail 11/13/18 11/13/18 11/13/18 Range/Units 05:23 05:23 11:53 WBC 14.8 H 14.8 H (3.8-10.6) k/uL RBC 3.13 L 2.92 L (3.80-5.40) m/uL Hgb 9.0 L D 8.6 L (11.4-16.0) gm/dL Hct 27.5 L 25.6 L (34.0-46.0) % Plt Count 127 L 124 L (150-450) k/uL Neutrophils # 11.3 H (1.3-7.7) k/uL Monocytes # (0-1.0) k/uL Sodium 136 L (137-145) mmol/L Chloride 112 H (98-107) mmol/L BUN 28 H (7-17) mg/dL Glucose 111 H (74-99) mg/dL Calcium 8.1 L (8.4-10.2) mg/dL Crossmatch Assessment and Plan (1) History of coronary artery bypass graft Current Visit: Yes Status: Acute Code(s): Z95.1 - PRESENCE OF AORTOCORONARY BYPASS GRAFT SNOMED Code(s): 141035671 (2) Acute blood loss anemia Current Visit: Yes Status: Acute Code(s): D62 - ACUTE POSTHEMORRHAGIC ANEMIA SNOMED Code(s): 917685818 (3) GI bleed Current Visit: Yes Status: Acute Code(s): K92.2 - GASTROINTESTINAL HEMORRHAGE, UNSPECIFIED SNOMED Code(s): 19450242 (4) History of hypertension Current Visit: Yes Status: Acute Code(s): Z86.79 - PERSONAL HISTORY OF OTHER DISEASES OF THE CIRCULATORY SYSTEM SNOMED Code(s): 408035292 (5) Hypotension Current Visit: Yes Status: Acute Code(s): I95.9 - HYPOTENSION, UNSPECIFIED SNOMED Code(s): 11551419 Plan: Overall patient's critical status is stable. No evidence of active bleeding. Patient to be transferred to telemetry unit
[2018-11-13] MEDS: LATANOPROST 0.005% OPHTH DROPS 2.5 ML BTL BOTH EYES SCH (20:09)
[2018-11-14] MEDS: SODIUM CHLORIDE 0.9% 1,000 ML IV SCH (01:48)
[2018-11-14 06:26] LABS: Anion Gap 3 mmol/L; Blood Urea Nitrogen 21 mg/dL (7-17); Calcium 7.9 mg/dL (8.4-10.2); Carbon Dioxide 21 mmol/L (22-30); Chloride 110 mmol/L (98-107); Glucose 81 mg/dL (74-99); Magnesium 1.8 mg/dL (1.6-2.3); Potassium 3.6 mmol/L (3.5-5.1); Sodium 134 mmol/L (137-145)
[2018-11-14 06:34] LABS: Anisocytosis Slight; Basophils % (A) 0 %; Eosinophils # (A) 0.2 k/uL (0-0.7); Eosinophils % (A) 2 %; HCT 24.6 % (34.0-46.0); HGB 8.3 gm/dL (11.4-16.0); Lymphocytes # (A) 1.4 k/uL (1.0-4.8); Lymphocytes % (A) 14 %; MCH 29.9 pg (25.0-35.0); MCHC 33.9 g/dL (31.0-37.0); MCV 88.3 fL (80.0-100.0); Mean Platelet Volume 8.1; Monocytes # (A) 0.7 k/uL (0-1.0); Monocytes % (A) 7 %; Neutrophils # (A) 7.6 k/uL (1.3-7.7); Neutrophils % (A) 76 %; Platelet Count 135 k/uL (150-450); RBC 2.79 m/uL (3.80-5.40); RDW 16.3 % (11.5-15.5); WBC 10.1 k/uL (3.8-10.6)
[2018-11-14] MEDS: LEVOTHYROXINE 88 MCG TAB PO SCH (06:37)
--- NOTE | 2018-11-14 11:49 | P.PN ---
Progress Note - Text Progress Note Date: 11/14/18 The patient stay well. She's had no further evidence of GI bleed. Her hemoglobin stable 8.3. On exam her vital signs are stable. Her abdomen soft. Healing gastric ulcer. Patient will continue receive supportive care.
--- NOTE | 2018-11-14 12:25 | PN ---
PROGRESS NOTE DATE OF SERVICE: November 14, 2018. She has been hemodynamically stable with no episodes of hypotension or syncope. Her blood pressure is 130/64, respiratory rate of 12, pulse 73, temperature 98.2. HEENT is unremarkable. Chest is clear. Cardiovascular system: S1, S2. Abdomen is soft. There is no pedal edema. White count is 10.1, hemoglobin of 8.3. Sodium 134, potassium 3.6, chloride 110, bicarb 29, BUN 21, creatinine 0.53. IMPRESSION: At this time is: 1. Acute gastrointestinal bleed with gastric ulcer, status post clipping of the bleeder. 2. Protein calorie malnutrition. Continue Protonix, SCDs. 3. Increase activity level. 4. Prognosis fair. MMODL / IJN: [id number] /
[2018-11-14] MEDS: METOPROLOL TARTRATE 25 MG TAB PO SCH ×2 (12:51→22:01)
[2018-11-14] MEDS: PANTOPRAZOLE 40 MG/10 ML VIAL IVP SCH ×2 (12:52→22:01)
[2018-11-14] MEDS ORDERED: MAGNESIUM SULFATE-D5W PMX 1 GM in DEXTROSE/WATER 1 100ML.BAG IVPB ONE (16:18)
[2018-11-14] MEDS: MAGNESIUM SULFATE-D5W PMX 1 GM in DEXTROSE/WATER 1 100ML.BAG IVPB SCH ×2 (16:55→19:08)
--- NOTE | 2018-11-14 21:50 | PN ---
PROGRESS NOTE SUBJECTIVE: 83-year-old white female status post GI bleed with gastric ulcer cauterized. Her hemoglobin is trending down. No active bleeding has been seen though. Possibly advance her diet and possibly be discharged home tomorrow if she continues to improve. She is sitting up in her bed. Abdomen is soft. Try to advance her diet, maybe go home soon. ASSESSMENT: 1. Hypothyroidism. 2. Hypertension. 3. Severe scoliosis. 4. Gastric ulcer, status post bleed with severe anemia. Status post 4 blood transfusions. Continue Protonix. PROGNOSIS: Guarded. Possible discharge home in the morning. MMODL / IJN: [id number] /
[2018-11-14] MEDS: LATANOPROST 0.005% OPHTH DROPS 2.5 ML BTL BOTH EYES SCH (22:02)
[2018-11-15] MEDS: LEVOTHYROXINE 88 MCG TAB PO SCH (06:53)
[2018-11-15] MEDS: METOPROLOL TARTRATE 25 MG TAB PO SCH (07:32)
[2018-11-15] MEDS: PANTOPRAZOLE 40 MG/10 ML VIAL IVP SCH (07:33)
[2018-11-15 07:48] LABS: Anisocytosis Slight; Basophils % (A) 0 %; Eosinophils # (A) 0.3 k/uL (0-0.7); Eosinophils % (A) 3 %; HCT 30.4 % (34.0-46.0); Lymphocytes # (A) 1.7 k/uL (1.0-4.8); Lymphocytes % (A) 16 %; MCH 29.1 pg (25.0-35.0); MCV 88.1 fL (80.0-100.0); Monocytes # (A) 0.7 k/uL (0-1.0); Monocytes % (A) 7 %; Neutrophils # (A) 7.3 k/uL (1.3-7.7); Neutrophils % (A) 72 %; Platelet Count 161 k/uL (150-450); RBC 3.45 m/uL (3.80-5.40); RDW 16.8 % (11.5-15.5); WBC 10.1 k/uL (3.8-10.6)
[2018-11-15 07:57] LABS: ALT 43 U/L (9-52); AST 42 U/L (14-36); Albumin 2.7 g/dL (3.5-5.0); Alkaline Phosphatase 79 U/L (38-126); Anion Gap 6 mmol/L; Blood Urea Nitrogen 11 mg/dL (7-17); Calcium 8.5 mg/dL (8.4-10.2); Carbon Dioxide 24 mmol/L (22-30); Chloride 105 mmol/L (98-107); Glucose 98 mg/dL (74-99); Potassium 3.9 mmol/L (3.5-5.1); Sodium 135 mmol/L (137-145); Total Bilirubin 0.7 mg/dL (0.2-1.3); Total Protein 4.7 g/dL (6.3-8.2)
[2018-11-15 08:40] VITALS: BP 172/85; PULSE 86; RESP 15; TEMP 98.1
--- NOTE | 2018-11-15 10:20 | P.PN ---
Subjective Progress Note Date: 11/15/18 11/15/2018: Patient seen and examined. Patient is ambulating in her room. She is currently on room air. She denies any abdominal pain, nausea, vomiting. She denies any chest pain and shortness of breath. She states she feels really good and would like to go home today. Objective - Vital Signs Vital signs: Vital Signs Temp 98.1 F 11/15/18 06:42 Pulse 86 11/15/18 07:35 Resp 15 11/15/18 07:35 BP 172/85 11/15/18 06:42 Pulse Ox 98 11/15/18 06:42 Intake & Output 11/14/18 11/15/18 11/15/18 18:59 06:59 18:59 Intake Total 1140 Balance 1140 Intake: IV 300 Sodium Chloride 0.9% 1, 300 000 ml @ 75 mls/hr IV . [id number] [facility] Rx#:[id number] Intake, IV Titration 100 Amount Magnesium Sulfate-D5w Pmx 100 1 gm In Dextrose/Water 1 100ml.bag @ 100 mls/hr IVPB Q1H [facility] Rx#: [id number] Oral 740 Other: # Voids 2 1 - Exam General: Patient is alert and oriented 3, no acute distress Cardiovascular: Regular rate and rhythm, S1/S2 Lungs: Clear to auscultation bilaterally no wheezes rales or rhonchi Abdomen: Soft nontender nondistended positive bowel sounds Extremities: No edema - Labs CBC & Chem 7: 11/15/18 07:13 11/15/18 07:13 Labs: Abnormal Lab Results - Last 24 Hours (Table) 11/15/18 11/15/18 Range/Units 07:13 07:13 RBC 3.45 L (3.80-5.40) m/uL Hgb 10.0 L D (11.4-16.0) gm/dL Hct 30.4 L (34.0-46.0) % RDW 16.8 H (11.5-15.5) % Sodium 135 L (137-145) mmol/L AST 42 H (14-36) U/L Total Protein 4.7 L (6.3-8.2) g/dL Albumin 2.7 L (3.5-5.0) g/dL Assessment and Plan Assessment: Symptomatic anemia, blood loss Acute GIB due to gastric ulcer, s/p clipping History of ASCAD and AVR History of GIB and diverticulosis GERD Dehydration Severe PCM Hypothyroid Hypertension Transfuse PRBC for hemoglobin <7 Monitor for s/sx of continued bleeding Continue patient's home medications, hold NSAIDs Montior urine output and renal function Consult dietitian IS and pulmonary hygiene SCDs for DVT prophylaxis, Protonix for GI Ok to DC from pulmonary standpoint.
--- NOTE | 2018-11-15 10:58 | P.PN ---
Subjective Progress Note Date: 11/15/18 CHIEF COMPLAINT: Rectal bleeding HISTORY OF PRESENT ILLNESS: Patient is status post EGD revealing gastric ulcer. Hemoglobin this morning 10.0. Patient states she is feeling well. No further episodes of bleeding. She is asking to be discharged home today. PHYSICAL EXAM: VITAL SIGNS: Currently stable. GENERAL: Well-developed in no acute distress. HEENT: No sclera icterus. Extraocular movements grossly intact. Moist buccal mucosa. Head is atraumatic, normocephalic. Hears conversational speech. No nasal drainage. NECK: Supple without lymphadenopathy. CHEST: Non-labored respirations and equal bilateral excursions. CARDIOVASCULAR: Regular rate with regular rhythm. Palpable 2+ radial pulses. ABDOMEN: Soft. Nondistended. Nontender. MUSCULOSKELETAL: No clubbing, cyanosis or edema. NEUROLOGIC: No focal or lateralizing signs. Cranial nerves II through XII grossly intact. PSYCH: Appropriate affect. Alert and oriented to person, place and time. SKIN: Well perfused. Good skin turgor. ASSESSMENT: 1. GI bleed, status post EGD revealing gastric ulcer 2. Acute blood loss anemia PLAN: Patient is stable for discharge from a surgical standpoint. We will sign off. Please reconsult if needed. Nurse practitioner note has been reviewed by physician. Signing provider agrees with the documented findings, assessment, and plan of care. Objective - Vital Signs Vital signs: Vital Signs Temp 98.1 F 11/15/18 06:42 Pulse 86 11/15/18 07:35 Resp 15 11/15/18 07:35 BP 172/85 11/15/18 06:42 Pulse Ox 98 11/15/18 06:42 Intake & Output 11/14/18 11/15/18 11/15/18 18:59 06:59 18:59 Intake Total 1140 Balance 1140 Intake: IV 300 Sodium Chloride 0.9% 1, 300 000 ml @ 75 mls/hr IV . [id number] [facility] Rx#:[id number] Intake, IV Titration 100 Amount Magnesium Sulfate-D5w Pmx 100 1 gm In Dextrose/Water 1 100ml.bag @ 100 mls/hr IVPB Q1H [facility] Rx#: [id number] Oral 740 Other: # Voids 2 1 - Labs CBC & Chem 7: 11/15/18 07:13 11/15/18 07:13 Labs: Abnormal Lab Results - Last 24 Hours (Table) 11/15/18 11/15/18 Range/Units 07:13 07:13 RBC 3.45 L (3.80-5.40) m/uL Hgb 10.0 L D (11.4-16.0) gm/dL Hct 30.4 L (34.0-46.0) % RDW 16.8 H (11.5-15.5) % Sodium 135 L (137-145) mmol/L AST 42 H (14-36) U/L Total Protein 4.7 L (6.3-8.2) g/dL Albumin 2.7 L (3.5-5.0) g/dL
== END 2018-11-15 12:40 | disposition home or self-care (01) | DRG 377 ==
LOC: EC 09:54 → 3SCARD 10:07 → 2SICU 19:01 → 4SSUR 11-14 09:42
PROVIDERS: ADMIT Family Medicine; ATTEND Family Medicine
PROC: 30233N1 Transfusion of Nonautologous Red Blood Cells into Peripheral Vein, Percutaneous Approach (ICD-10-PCS; 2018-11-11)
PROC: 0W3P8ZZ Control Bleeding in Gastrointestinal Tract, Via Natural or Artificial Opening Endoscopic (ICD-10-PCS; principal; 2018-11-12 08:20)
DX: K25.4 Chronic or unspecified gastric ulcer with hemorrhage (principal); E43 Unspecified severe protein-calorie malnutrition; D62 Acute posthemorrhagic anemia; E87.1 Hypo-osmolality and hyponatremia; I95.9 Hypotension, unspecified; M41.9 Scoliosis, unspecified; E86.0 Dehydration; R54 Age-related physical debility; I25.10 Atherosclerotic heart disease of native coronary artery without angina pectoris; I10 Essential (primary) hypertension; E03.9 Hypothyroidism, unspecified; M54.9 Dorsalgia, unspecified; G89.29 Other chronic pain; K57.30 Diverticulosis of large intestine without perforation or abscess without bleeding; K21.9 Gastro-esophageal reflux disease without esophagitis; K44.9 Diaphragmatic hernia without obstruction or gangrene; R00.0 Tachycardia, unspecified; M19.90 Unspecified osteoarthritis, unspecified site; Z68.23 Body mass index [BMI] 23.0-23.9, adult; Z71.3 Dietary counseling and surveillance; Z79.899 Other long term (current) drug therapy; Z79.890 Hormone replacement therapy; Z79.1 Long term (current) use of non-steroidal anti-inflammatories (NSAID); Z95.3 Presence of xenogenic heart valve; Z95.1 Presence of aortocoronary bypass graft; Z80.1 Family history of malignant neoplasm of trachea, bronchus and lung; Z82.0 Family history of epilepsy and other diseases of the nervous system; Z87.311 Personal history of (healed) other pathological fracture
CPT/HCPCS: 43243; 43255; 74176; 80048; 80053; 81003; 83735; 84100; 85025; 85027; 85610; 85730; 86850; 86900; 86901; 86920; 94760; 99284

== ENCOUNTER 2018-11-19 17:48 | Emergency (ER) | payer MEDICARE, OTHER ==
[2018-11-19 17:53] VITALS: RESP 18
[2018-11-19 18:47] LABS: Anisocytosis Slight; Basophils % (A) 1 %; Eosinophils # (A) 0.3 k/uL (0-0.7); Eosinophils % (A) 4 %; HCT 32.5 % (34.0-46.0); HGB 10.1 gm/dL (11.4-16.0); Hypochromasia Slight; Lymphocytes # (A) 1.8 k/uL (1.0-4.8); Lymphocytes % (A) 23 %; MCH 28.7 pg (25.0-35.0); MCHC 30.9 g/dL (31.0-37.0); MCV 92.9 fL (80.0-100.0); Mean Platelet Volume 7.2; Monocytes # (A) 0.6 k/uL (0-1.0); Monocytes % (A) 7 %; Neutrophils # (A) 5.2 k/uL (1.3-7.7); Neutrophils % (A) 64 %; Platelet Count 334 k/uL (150-450); WBC 8.1 k/uL (3.8-10.6)
[2018-11-19 18:53] LABS: INR 0.9 (<1.2); Partial Thromboplastin Time 22.6 sec (22.0-30.0); Prothrombin Time 9.7 sec (9.0-12.0)
[2018-11-19 18:57] LABS: ALT 34 U/L (9-52); AST 42 U/L (14-36); Albumin 3.4 g/dL (3.5-5.0); Alkaline Phosphatase 95 U/L (38-126); Anion Gap 5 mmol/L; Blood Urea Nitrogen 10 mg/dL (7-17); Calcium 9.1 mg/dL (8.4-10.2); Carbon Dioxide 28 mmol/L (22-30); Chloride 103 mmol/L (98-107); Glucose 105 mg/dL (74-99); Sodium 136 mmol/L (137-145); Total Bilirubin 0.4 mg/dL (0.2-1.3); Total Protein 5.5 g/dL (6.3-8.2)
--- NOTE | 2018-11-19 19:01 | ED ---
GI Bleed HPI - General Chief complaint: GI Bleed Stated complaint: Blood in stool Time Seen by Provider: 11/19/18 18:05 Source: patient, RN notes reviewed Mode of arrival: ambulatory Limitations: no limitations - History of Present Illness Initial comments: 83-year-old female presents emergency Department chief complaint of bloody bowel movement. Patient states she recently was admitted the hospital for a bleeding ulcer. Patient's found to have a hemoglobin of 6. Patient states she feels much better at this time she has no abdominal pain denies chest pain, shortness breath, headache, dizziness, fever, chills. Patient states that this is the fi rst bowel movement that she's had since leaving the hospital and noticed the bright red blood. Patient states she had no recurrent symptoms. Patient offers no other complaints. - Related Data Home Medications Medication Instructions Recorded Confirmed Latanoprost Ophth [Xalatan 0.005%] 1 drop BOTH EYES HS 11/11/18 11/19/18 Levothyroxine Sodium [Synthroid] 88 mcg PO DAILY 11/11/18 11/19/18 Metoprolol Tartrate [Lopressor] 50 mg PO BID 11/11/18 11/19/18 Multivitamins, Thera [Multivitamin 1 tab PO DAILY 11/19/18 11/19/18 (formulary)] Pantoprazole [Protonix] 40 mg PO BID 11/19/18 11/19/18 Allergies Allergy/AdvReac Type Severity Reaction Status Date / Time No Known Allergies Allergy Verified 11/19/18 18:25 Review of Systems ROS Statement: Those systems with pertinent positive or pertinent negative responses have been documented in the HPI. ROS Other: All systems not noted in ROS Statement are negative. Past Medical History Past Medical History: Coronary Artery Disease (CAD), Eye Disorder, GERD/Reflux, GI Bleed, Hypertension, Thyroid Disorder Additional Past Medical History / Comment(s): Pt recently admitted to [facility] for weakness and hyponatremia. Other Hx: Aortic valve replacement, aortic aneurysm repair, lower GI bleed, diverticular disease, gastritis, doudenitis, multiple erosions/gastric ulcers, chronic thoracic back pain with thoracic compression fracture. History of Any Multi-Drug Resistant Organisms: None Reported Past Surgical History: Cardiac Valve Replacement Additional Past Surgical History / Comment(s): Aortic aneurysm repair, cardiac valve replacement, EGD, colonoscopy. Past Anesthesia/Blood Transfusion Reactions: No Reported Reaction Additional Past Anesthesia/Blood Transfusion Reaction / Comment(s): Pt received blood in 2012 and 11/11/18 without reaction Past Psychological History: No Psychological Hx Reported Smoking Status: Never smoker Past Alcohol Use History: None Reported Past Drug Use History: None Reported - Past Family History Mother Family Medical History: Neurologic Disorder Additional Family Medical History / Comment(s): Mother had parkinson's disease and a mastectomy that turned out to be noncancerous Father Family Medical History: Cancer Additional Family Medical History / Comment(s): Lung cancer. General Exam Limitations: no limitations General appearance: alert, in no apparent distress Head exam: Present: atraumatic, normocephalic, normal inspection Neck exam: Present: normal inspection. Absent: tenderness, meningismus, lymphad enopathy Respiratory exam: Present: normal lung sounds bilaterally. Absent: respiratory distress, wheezes, rales, rhonchi, stridor Cardiovascular Exam: Present: regular rate, normal rhythm, normal heart sounds. Absent: systolic murmur, diastolic murmur, rubs, gallop, clicks GI/Abdominal exam: Present: soft, normal bowel sounds. Absent: distended, tenderness, guarding, rebound, rigid Skin exam: Present: warm, dry, intact, normal color. Absent: rash Course Vital Signs 11/19/18 11/19/18 17:50 19:31 Temperature 97.8 F 98.0 F Pulse Rate 64 63 Respiratory 18 18 Rate Blood Pressure 125/76 156/78 O2 Sat by Pulse 98 99 Oximetry Medical Decision Making - Medical Decision Making 83-year-old male presented for possible blood in stool. Patient's hemoglobin is trending up. Patient did have recent hospitalization for ulcer. This was cauterized. Patient is stable, vitals unremarkable. Patient will follow-up with PCP and GI - Lab Data Result diagrams: 11/19/18 18:33 11/19/18 18:33 Lab Results 11/19/18 11/19/18 11/19/18 Range/Units 18:33 18:33 18:33 WBC 8.1 (3.8-10.6) k/uL RBC 3.50 L (3.80-5.40) m/uL Hgb 10.1 L (11.4-16.0) gm/dL Hct 32.5 L (34.0-46.0) % MCV 92.9 (80.0-100.0) fL MCH 28.7 (25.0-35.0) pg MCHC 30.9 L (31.0-37.0) g/dL RDW 16.0 H (11.5-15.5) % Plt Count 334 D (150-450) k/uL Neutrophils % 64 % Lymphocytes % 23 % Monocytes % 7 % Eosinophils % 4 % Basophils % 1 % Neutrophils # 5.2 (1.3-7.7) k/uL Lymphocytes # 1.8 (1.0-4.8) k/uL Monocytes # 0.6 (0-1.0) k/uL Eosinophils # 0.3 (0-0.7) k/uL Basophils # 0.0 (0-0.2) k/uL Hypochromasia Slight Anisocytosis Slight PT 9.7 (9.0-12.0) sec INR 0.9 (<1.2) APTT 22.6 (22.0-30.0) sec Sodium 136 L (137-145) mmol/L Potassium 4.0 (3.5-5.1) mmol/L Chloride 103 (98-107) mmol/L Carbon Dioxide 28 (22-30) mmol/L Anion Gap 5 mmol/L BUN 10 (7-17) mg/dL Creatinine 0.62 (0.52-1.04) mg/dL Est GFR (CKD-EPI)AfAm >90 (>60 ml/min/1.73 sqM) Est GFR (CKD-EPI)NonAf 83 (>60 ml/min/1.73 sqM) Glucose 105 H (74-99) mg/dL Calcium 9.1 (8.4-10.2) mg/dL Total Bilirubin 0.4 (0.2-1.3) mg/dL AST 42 H (14-36) U/L ALT 34 (9-52) U/L Alkaline Phosphatase 95 (38-126) U/L Total Protein 5.5 L (6.3-8.2) g/dL Albumin 3.4 L (3.5-5.0) g/dL Disposition Clinical Impression: History of GI bleed, Anemia Disposition: HOME SELF-CARE Condition: Stable Instructions (If sedation given, give patient instructions): Gastrointestinal Bleeding (ED) Additional Instructions: Please return to the Emergency Department if symptoms worsen or any other concerns. Is patient prescribed a controlled substance at d/c from ED?: No Referrals: Romeo Montes MD [Primary Care Provider] - 1-2 days Time of Disposition: 20:02
[2018-11-19 19:32] VITALS: BP 156/78; PULSE 63; TEMP 98
== END 2018-11-19 20:11 | disposition home or self-care (01) ==
LOC: EC 17:48
DX: D64.9 Anemia, unspecified (principal); Z87.19 Personal history of other diseases of the digestive system; I25.10 Atherosclerotic heart disease of native coronary artery without angina pectoris; K21.9 Gastro-esophageal reflux disease without esophagitis; I10 Essential (primary) hypertension; E07.9 Disorder of thyroid, unspecified; Z79.890 Hormone replacement therapy; Z79.899 Other long term (current) drug therapy; Z95.2 Presence of prosthetic heart valve; Z95.4 Presence of other heart-valve replacement
CPT/HCPCS: 36415; 80053; 85025; 85610; 85730; 99284